=== PATIENT | female | born 1930 | race African-American/Black ===

== ENCOUNTER 2017-01-14 13:21 | Inpatient (IN) | payer OTHER, MEDICAID ==
[~2017-01-14] VITALS: Ht 162.6 cm; Wt 66.2 kg
[~2017-01-14 13:21] MED LIST: ASPI-1159 PO; COR12 PO; FURO-151 PO; LIPITOR PO; SEVE800T8 PO; SORBITOL PO
[2017-01-14] MEDS ORDERED: ASPIRIN 81MG TABLET PO ONE (14:45)
[2017-01-14] MEDS ORDERED: ALBUTEROL (0.083%) 2.5MG/3ML NEB HHN ONE (15:00)
[2017-01-14] MEDS ORDERED: METHYLPREDNISOLONE SOD SUCC 125 MG/2 ML VIAL IV ONE (15:00)
[2017-01-14] MEDS ORDERED: IPRATROPIUM BROMIDE (0.02%) 0.5MG/2.5ML NEB HHN ONE (15:00)
[2017-01-14 15:40] LABS: BASOPHILS % 1.2 % (0.0-2.0); EOSINOPHILS % 4.1 % (0.0-5.0); HEMATOCRIT. 31.8 % (36.0-48.0); HEMOGLOBIN. 10.5 g/dL (12.0-16.0); LYMPHOCYTES % 18.8 % (20.0-50.0); MEAN CORPUSCULAR HEMOGLOBIN 31.9 pg (28.0-32.0); MEAN CORPUSCULAR VOLUME 96.6 fL (81.0-99.0); MEAN PLATELET VOLUME 10.6 fl (7.4-10.4); MONOCYTES % 9.1 % (2.0-8.0); NEUTROPHILS % 66.8 % (40.0-76.0); PLATELET 165 x1000/uL (130-400); RED CELL DISTRIBUTION WIDTH 14.8 % (11.6-14.6)
[2017-01-14 15:46] LABS: PROTHROMBIN TIME 10.3 sec (9.4-11.6)
[2017-01-14 15:56] LABS: CARBON DIOXIDE 33 mEq/L (21-32); CHLORIDE 92 mEq/L (98-107); TROPONIN I 0.06 ng/mL (0.00-0.04)
[2017-01-14] MEDS ORDERED: NITROGLYCERIN 0.1MG/HR PATCH TOP SCH (18:15)
[2017-01-14] MEDS ORDERED: LORAZEPAM 2MG/ML CPJ IV PRN (18:30)
[2017-01-14] MEDS ORDERED: DIPHENHYDRAMINE 50MG/ML VIAL IV PRN (18:30)
[2017-01-14] MEDS ORDERED: ZOLPIDEM TARTRATE 5MG TABLET PO PRN (18:30)
[2017-01-14] MEDS ORDERED: DOCUSATE SODIUM 100MG CAPSULE PO PRN (18:30)
[2017-01-14] MEDS ORDERED: GUAIFENESIN 200MG/10ML SUGAR FREE UDC PO PRN (18:30)
[2017-01-14] MEDS ORDERED: CLONIDINE 0.1MG TABLET PO PRN (18:30)
[2017-01-14] MEDS ORDERED: MORPHINE SULFATE 4 MG/ML CPJ (NOT FOR IM USE) IV PRN (18:30)
[2017-01-14] MEDS ORDERED: MAGNESIUM/ALUMINUM HYDROXIDE/SIMETHICONE 30ML UDC PO PRN (18:30)
[2017-01-14] MEDS ORDERED: NA PHOS,M-B/NA PHOS,DI-BA ENEMA 118ML PR PRN (18:30)
[2017-01-14] MEDS ORDERED: IPRATROPIUM/ALBUTEROL 0.5-3(2.5)MG/3ML NEB INH PRN (18:30)
[2017-01-14] MEDS ORDERED: NITROGLYCERIN 0.4MG TABLET SL SL PRN (18:30)
[2017-01-14] MEDS ORDERED: ACETAMINOPHEN 325MG TABLET PO PRN (18:30)
[2017-01-14] MEDS ORDERED: ONDANSETRON HCL 4MG/2ML VIAL IV PRN (18:30)
[2017-01-14] MEDS ORDERED: GUAIFENESIN/DM 600MG/30MG ER TAB 12HR PO SCH (18:30)
[2017-01-14] MEDS ORDERED: TRAMADOL 50MG TABLET PO PRN (18:30)
[2017-01-14] MEDS ORDERED: BENAZEPRIL 20MG TABLET PO NR (21:00)
[2017-01-14] MEDS ORDERED: CARVEDILOL 25MG TABLET PO NR (21:00)
[2017-01-14 21:15] VITALS: BP 169/74
[2017-01-14] MEDS ORDERED: EPOETIN ALFA 4000UNITS/ML VIAL SUBCUT NR (22:00)
[2017-01-14] MEDS ORDERED: AMLO10TA80 PO (23:20)
[2017-01-14] MEDS ORDERED: CALC0.5C10 PO (23:20)
[2017-01-14] MEDS ORDERED: DOXA2TAB2 PO (23:20)
[2017-01-14] MEDS ORDERED: FERR-54 PO (23:20)
[2017-01-14] MEDS ORDERED: NEPVIT PO (23:20)
[2017-01-14] MEDS ORDERED: BENA40TA3 PO (23:20)
[2017-01-14] MEDS ORDERED: DOCU-150 PO (23:58)
[2017-01-15] VITALS: BP 167/98
[2017-01-15] MEDS ORDERED: FOLI1CAP6 PO (00:02)
[2017-01-15] MEDS ORDERED: DOCUSATE SODIUM 100MG CAPSULE PO NR (01:00)
[2017-01-15 01:09] LABS: CREATINE KINASE MB FRACTION 1.7 ng/mL (0.5-3.6); TROPONIN I 0.06 ng/mL (0.00-0.04)
[2017-01-15] MEDS ORDERED: FERROUS SULFATE 325MG TABLET PO NR (01:30)
[2017-01-15] MEDS ORDERED: CARVEDILOL 3.125 MG TABLET PO SCH (06:00)
[2017-01-15] MEDS ORDERED: SEVELAMER CARBONATE 800 MG TABLET PO SCH (07:50)
[2017-01-15] MEDS ORDERED: FAMOTIDINE 20MG/2ML VIAL IV SCH (09:00)
[2017-01-15] MEDS ORDERED: ENOXAPARIN 30MG/0.3ML SYR SUBCUT SCH (09:00)
[2017-01-15] MEDS ORDERED: FUROSEMIDE 40MG/4ML VIAL IVP SCH (09:00)
[2017-01-15] MEDS ORDERED: FOLIC ACID/VITAMIN B COMP W-C TABLET PO SCH (09:00)
[2017-01-15] MEDS ORDERED: ASPIRIN 325MG EC TABLET PO SCH (09:00)
== END 2017-01-15 02:55 | disposition left against medical advice (07) | DRG 291 ==
LOC: ER 13:21 → 6WST 18:18 → EDBEDREQ 19:02 → ENRESERV 19:41
PROVIDERS: ADMIT Internal Medicine; ATTEND Internal Medicine
PROC: 5A1D00Z (ICD-10-PCS; principal; 2017-01-14)
DX: I13.2 Hypertensive heart and chronic kidney disease with heart failure and with stage 5 chronic kidney disease, or end stage renal disease (principal); I50.33 Acute on chronic diastolic (congestive) heart failure; J96.00 Acute respiratory failure, unspecified whether with hypoxia or hypercapnia; N18.6 End stage renal disease; E88.09 Other disorders of plasma-protein metabolism, not elsewhere classified; D63.1 Anemia in chronic kidney disease; Z53.21 Procedure and treatment not carried out due to patient leaving prior to being seen by health care provider; Z99.2 Dependence on renal dialysis; Z79.82 Long term (current) use of aspirin; Z79.899 Other long term (current) drug therapy
CPT/HCPCS: 36415; 71010; 80053; 80061; 82550; 82553; 83036; 83605; 83690; 83735; 83880; 84484; 85025; 85610; 87040; 93005; 99285; J0885; J7030

== ENCOUNTER 2018-02-22 21:33 | Emergency (ER) | payer OTHER, MEDICAID ==
[~2018-02-22] VITALS: Ht 160 cm; Wt 63.0 kg
[~2018-02-22 21:33] MED LIST changes: +AMLO10TA80 PO; +BENA40TA9 PO; +CALC0.5C10 PO; +DOCU-150 PO; +DOXA2TAB2 PO; +FERR-54 PO; +FOLI1CAP6 PO; +NEPVIT PO
[2018-02-22] MEDS ORDERED: DIPHENHYDRAMINE 50MG/ML VIAL IV PRN (23:45)
[2018-02-22] MEDS ORDERED: MAGNESIUM/ALUMINUM HYDROXIDE/SIMETHICONE 30ML UDC PO PRN (23:45)
[2018-02-22] MEDS ORDERED: HYDROMORPHONE HCL/PF 2MG/ML CPJ IV PRN (23:45)
[2018-02-22] MEDS ORDERED: GUAIFENESIN 200MG/10ML SUGAR FREE UDC PO PRN (23:45)
[2018-02-22] MEDS ORDERED: IPRATROPIUM/ALBUTEROL 0.5-3(2.5)MG/3ML NEB INH PRN (23:45)
[2018-02-22] MEDS ORDERED: ONDANSETRON HCL 4MG/2ML INJ IV PRN (23:45)
[2018-02-22] MEDS ORDERED: NA PHOS,M-B/NA PHOS,DI-BA ENEMA 118ML PR PRN (23:45)
[2018-02-22] MEDS ORDERED: DOCUSATE SODIUM 100MG CAPSULE PO PRN (23:45)
[2018-02-22] MEDS ORDERED: ACETAMINOPHEN 325MG TABLET PO PRN (23:45)
[2018-02-22] MEDS ORDERED: CLONIDINE 0.1MG TABLET PO PRN (23:45)
[2018-02-22] MEDS ORDERED: LORAZEPAM 2MG/ML CPJ IV PRN (23:45)
[2018-02-22] MEDS ORDERED: ENOXAPARIN 40MG/0.4ML SYR SUBCUT SCH (23:45)
[2018-02-22] MEDS ORDERED: HYDROCODONE/ACETAMINOPHEN 5/325MG TABLET PO PRN (23:45)
[2018-02-23 00:25] LABS: BASOPHILS % 1.5 % (0.0-2.0); HEMATOCRIT. 30.1 % (36.0-48.0); HEMOGLOBIN. 10.1 g/dL (12.0-16.0); LYMPHOCYTES % 22.2 % (20.0-50.0); MEAN CORPUSCULAR HEMOGLOBIN 32.4 pg (28.0-32.0); MEAN CORPUSCULAR VOLUME 97.1 fL (81.0-99.0); MEAN PLATELET VOLUME 10.4 fl (7.4-10.4); MONOCYTES % 8.7 % (2.0-8.0); NEUTROPHILS % 63.6 % (40.0-76.0); PLATELET 188 x1000/uL (130-400); RED CELL DISTRIBUTION WIDTH 14.6 % (11.6-14.6)
[2018-02-23] MEDS ORDERED: CEFTRIAXONE 1 G PREMIX 50 ML IV ONE (00:30)
[2018-02-23] MEDS ORDERED: AZITHROMYCIN 500 MG in DEXT 5% WATER 250 ML IV ONE (00:30)
[2018-02-23 00:36] LABS: CHLORIDE 88 mEq/L (98-107)
[2018-02-23 01:50] VITALS: BP 155/74
[2018-02-23] MEDS ORDERED: ASPIRIN 81MG EC TABLET PO SCH (09:00)
== END 2018-02-23 01:55 | disposition left against medical advice (07) ==
LOC: ER 21:33 → EDBEDREQDT 02-23 00:11 → EDBEDREQ 02-23 00:11 → EDBEDREQTM 02-23 00:11 → ER 02-23 01:55 → CANBEDREQ 02-23 02:09
DX: R53.1 Weakness (principal); R00.1 Bradycardia, unspecified; I12.9 Hypertensive chronic kidney disease with stage 1 through stage 4 chronic kidney disease, or unspecified chronic kidney disease; N18.9 Chronic kidney disease, unspecified; Z99.2 Dependence on renal dialysis; Z79.899 Other long term (current) drug therapy; Z79.82 Long term (current) use of aspirin; Z98.890 Other specified postprocedural states
CPT/HCPCS: 36415; 71045; 80053; 83605; 83880; 84484; 85025; 93005; 99285; J0456; J7060

== ENCOUNTER 2018-03-06 19:55 | Inpatient (IN) | payer OTHER, MEDICAID ==
[~2018-03-06] VITALS: Ht 160 cm; Wt 65.8 kg
[2018-03-07 00:07] LABS: BASOPHILS % 1.3 % (0.0-2.0); EOSINOPHILS % 3.7 % (0.0-5.0); HEMOGLOBIN. 7.2 g/dL (12.0-16.0); MEAN CORPUSCULAR HEMOGLOBIN 33.4 pg (28.0-32.0); MEAN CORPUSCULAR VOLUME 96.9 fL (81.0-99.0); MEAN PLATELET VOLUME 10.6 fl (7.4-10.4); MONOCYTES % 8.1 % (2.0-8.0); NEUTROPHILS % 70.9 % (40.0-76.0); PLATELET 173 x1000/uL (130-400); RED BLOOD CELL COUNT 2.17 mill/uL (4.2-5.4); RED CELL DISTRIBUTION WIDTH 14.1 % (11.6-14.6)
[2018-03-07 00:12] LABS: CHLORIDE 92 mEq/L (98-107); PARTIAL THROMBOPLASTIN TIME 25.9 sec (23.4-31.0); PROTHROMBIN TIME 10.4 sec (9.1-11.1)
[2018-03-07] MEDS ORDERED: SODIUM CHLORIDE 0.45% 1,000 ML IV SCH (00:28)
[2018-03-07] MEDS ORDERED: ONDANSETRON HCL 4MG/2ML INJ IV PRN (00:30)
[2018-03-07] MEDS ORDERED: GUAIFENESIN 200MG/10ML SUGAR FREE UDC PO PRN (00:30)
[2018-03-07] MEDS ORDERED: LORAZEPAM 2MG/ML CPJ IV PRN (00:30)
[2018-03-07] MEDS ORDERED: IPRATROPIUM/ALBUTEROL 0.5-3(2.5)MG/3ML NEB INH PRN (00:30)
[2018-03-07] MEDS ORDERED: CLONIDINE 0.1MG TABLET PO PRN (00:30)
[2018-03-07] MEDS ORDERED: DOCUSATE SODIUM 100MG CAPSULE PO PRN (00:30)
[2018-03-07] MEDS ORDERED: DIPHENHYDRAMINE 50MG/ML VIAL IV PRN (00:30)
[2018-03-07] MEDS ORDERED: MAGNESIUM/ALUMINUM HYDROXIDE/SIMETHICONE 30ML UDC PO PRN (00:30)
[2018-03-07] MEDS ORDERED: PANTOPRAZOLE SODIUM 40 MG/VIAL IV ONE (00:30)
[2018-03-07] MEDS ORDERED: NA PHOS,M-B/NA PHOS,DI-BA ENEMA 118ML PR PRN (00:30)
[2018-03-07] MEDS ORDERED: HYDROMORPHONE HCL/PF 2MG/ML CPJ IV PRN (00:30)
[2018-03-07] MEDS: HYDROCODONE/ACETAMINOPHEN 5/325MG TABLET PO PRN ×2 (10:17→20:12)
[2018-03-07] MEDS ORDERED: PHENYLEPHRINE/SHK LV/MO/PET,WH RECTAL OINT 28GM PR PRN (15:45)
[2018-03-07 15:48] VITALS: BP 150/59
[2018-03-07 16:16] VITALS: BP 150/59
[2018-03-07] MEDS: BISACODYL 5MG TABLET PO SCH (17:41)
[2018-03-07 20:00] VITALS: BP 167/68
[2018-03-07] MEDS ORDERED: EPOETIN ALFA 4000UNITS/ML VIAL SUBCUT NR (21:00)
[2018-03-07] MEDS: PANTOPRAZOLE SODIUM 40 MG/VIAL IV SCH (21:09)
[2018-03-07 22:05] LABS: BASOPHILS % 1.4 % (0.0-2.0); EOSINOPHILS % 3.8 % (0.0-5.0); HEMATOCRIT. 22.4 % (36.0-48.0); HEMOGLOBIN. 7.7 g/dL (12.0-16.0); LYMPHOCYTES % 16.5 % (20.0-50.0); MEAN CORPUSCULAR HEMOGLOBIN 33.4 pg (28.0-32.0); MEAN CORPUSCULAR VOLUME 97.5 fL (81.0-99.0); MEAN PLATELET VOLUME 10.6 fl (7.4-10.4); MONOCYTES % 5.9 % (2.0-8.0); NEUTROPHILS % 72.4 % (40.0-76.0); PLATELET 206 x1000/uL (130-400); RED CELL DISTRIBUTION WIDTH 14.2 % (11.6-14.6)
[2018-03-07 22:14] LABS: TOTAL IRON BINDING CAPACITY 206 ug/dL (250-450)
[2018-03-07 22:51] LABS: FOLIC ACID (FOLATE) SERUM >20 ng/mL ng/mL (>5.38); VITAMIN B12 SERUM >2000 pg/mL pg/mL (211-911)
[2018-03-07 23:04] LABS: FERRITIN 902 ng/mL (10-291)
[2018-03-07] MEDS: DEXT 5%/0.45% NACL 1000ML 1,000 ML IV SCH (23:58)
[2018-03-08] VITALS: BP 160/59
[2018-03-08 04:00] VITALS: BP 165/80
[2018-03-08] MEDS ORDERED: CLONIDINE HCL 0.2MG/24HR PATCH TD SCH (05:00)
[2018-03-08] MEDS ORDERED: EPOETIN ALFA 4000UNITS/ML VIAL SUBCUT SCH (06:00)
[2018-03-08] MEDS ORDERED: HYDROMORPHONE HCL/PF 2MG/ML CPJ IV PRN (06:15)
[2018-03-08 07:36] LABS: PARTIAL THROMBOPLASTIN TIME 23.8 sec (23.4-31.0); PROTHROMBIN TIME 10.3 sec (9.1-11.1)
[2018-03-08 07:42] LABS: BASOPHILS % 1.2 % (0.0-2.0); CHLORIDE 95 mEq/L (98-107); EOSINOPHILS % 1.6 % (0.0-5.0); HEMATOCRIT. 22.1 % (36.0-48.0); HEMOGLOBIN. 7.4 g/dL (12.0-16.0); LYMPHOCYTES % 9.3 % (20.0-50.0); MEAN CORPUSCULAR HEMOGLOBIN 32.7 pg (28.0-32.0); MEAN CORPUSCULAR VOLUME 96.9 fL (81.0-99.0); MEAN PLATELET VOLUME 10.5 fl (7.4-10.4); MONOCYTES % 5.4 % (2.0-8.0); NEUTROPHILS % 82.5 % (40.0-76.0); PLATELET 213 x1000/uL (130-400); RED BLOOD CELL COUNT 2.28 mill/uL (4.2-5.4); RED CELL DISTRIBUTION WIDTH 13.8 % (11.6-14.6)
[2018-03-08 08:00] VITALS: BP 154/64
[2018-03-08 08:01] LABS: CREATINE KINASE 157 IU/L (26-192); HDL CHOLESTEROL 66 mg/dL (40-59); LDL CHOLESTEROL 86 mg/dL (5-100)
[2018-03-08] MEDS: PANTOPRAZOLE SODIUM 40 MG/VIAL IV SCH ×2 (11:00→20:42)
[2018-03-08] MEDS: BENAZEPRIL 10MG TABLET PO SCH ×2 (11:02→20:42)
[2018-03-08] MEDS: BISACODYL 5MG TABLET PO SCH (11:03)
[2018-03-08] MEDS ORDERED: POTASSIUM CHLORIDE 20MEQ TABLET SR PO SCH (11:15)
[2018-03-08] MEDS ORDERED: SIMETHICONE 40 MG/0.6 ML 30ML ONE (11:32)
[2018-03-08 14:00] VITALS: BP 146/58
[2018-03-08] MEDS ORDERED: FENTANYL CITRATE/PF 50MCG/ML 2ML VIAL ONE (14:26)
[2018-03-08] MEDS ORDERED: MIDAZOLAM HCL 5 MG/5 ML VIAL ONE (14:26)
[2018-03-08] MEDS ORDERED: FENTANYL CITRATE/PF 50MCG/ML 2ML VIAL IV PRN (14:34)
[2018-03-08] MEDS ORDERED: MIDAZOLAM HCL 5 MG/5 ML VIAL IV PRN (14:35)
[2018-03-08] MEDS: IRON SUCROSE COMPLEX 100 MG/5 ML ML IV SCH (17:04)
[2018-03-08] MEDS: ACETAMINOPHEN 325MG TABLET PO PRN (18:17)
[2018-03-08 20:00] VITALS: BP 141/60
[2018-03-08] MEDS: DEXT 5%/0.45% NACL 1000ML 1,000 ML IV SCH (20:43)
[2018-03-08 22:01] LABS: CREATINE KINASE MB FRACTION 1.2 ng/mL (0.5-3.6)
[2018-03-08] MEDS: LEVOFLOXACIN 250MG PREMIX 50 ML IV SCH (23:45)
[2018-03-09] VITALS (9 sets, daily range): BP systolic 115–169; BP diastolic 53–84
[2018-03-09] MEDS ORDERED: INFLUENZA VIRUS VACCINE(AFLURIA) 0.5ML SYR IM ONE (06:00)
[2018-03-09] MEDS: IRON SUCROSE COMPLEX 100 MG/5 ML ML IV SCH (09:35)
[2018-03-09] MEDS: BENAZEPRIL 10MG TABLET PO SCH ×2 (09:36→21:04)
[2018-03-09] MEDS: BISACODYL 5MG TABLET PO SCH (09:36)
[2018-03-09 09:37] LABS: RED BLOOD CELL COUNT 2.06 mill/uL (4.2-5.4)
[2018-03-09 09:40] LABS: HEMATOCRIT. 20.4 % (36.0-48.0); HEMOGLOBIN. 6.8 g/dL (12.0-16.0); MEAN CORPUSCULAR HEMOGLOBIN 33.2 pg (28.0-32.0); MEAN CORPUSCULAR VOLUME 99.3 fL (81.0-99.0); PLATELET 175 x1000/uL (130-400); RED CELL DISTRIBUTION WIDTH 14.4 % (11.6-14.6)
[2018-03-09 09:41] LABS: BASOPHILS % 0.9 % (0.0-2.0); EOSINOPHILS % 2.8 % (0.0-5.0); MEAN PLATELET VOLUME 10.8 fl (7.4-10.4); MONOCYTES % 8.8 % (2.0-8.0); NEUTROPHILS % 77.5 % (40.0-76.0)
[2018-03-09] MEDS ORDERED: EPOETIN ALFA 4000UNITS/ML VIAL SUBCUT NR (18:00)
[2018-03-09] MEDS ORDERED: LACTULOSE 20G/30ML UDC PO NR (19:00)
[2018-03-09] MEDS ORDERED: DOCUSATE SODIUM 250MG CAPSULE PO SCH (19:00)
[2018-03-09] MEDS: CARVEDILOL 12.5MG TABLET PO SCH (21:03)
[2018-03-09] MEDS: AMLODIPINE 5MG TABLET PO SCH (21:03)
[2018-03-09 23:03] LABS: HEMATOCRIT 25.2 % (36.0-48.0); HEMOGLOBIN 8.7 g/dL (12.0-16.0)
[2018-03-09 23:09] LABS: INR 1.1; PROTHROMBIN TIME 10.7 sec (9.1-11.1)
[2018-03-10] VITALS: BP 141/64
[2018-03-10 04:00] VITALS: BP 156/54
[2018-03-10 07:57] LABS: BASOPHILS % 1.2 % (0.0-2.0); EOSINOPHILS % 4.4 % (0.0-5.0); HEMATOCRIT. 25.5 % (36.0-48.0); HEMOGLOBIN. 8.7 g/dL (12.0-16.0); LYMPHOCYTES % 16.6 % (20.0-50.0); MEAN CORPUSCULAR HEMOGLOBIN 32.4 pg (28.0-32.0); MEAN CORPUSCULAR VOLUME 95.4 fL (81.0-99.0); MEAN PLATELET VOLUME 10.4 fl (7.4-10.4); NEUTROPHILS % 67.8 % (40.0-76.0); PLATELET 178 x1000/uL (130-400); RED BLOOD CELL COUNT 2.68 mill/uL (4.2-5.4); RED CELL DISTRIBUTION WIDTH 15.8 % (11.6-14.6)
[2018-03-10 08:00] VITALS: BP 161/61
[2018-03-10] MEDS: IRON SUCROSE COMPLEX 100 MG/5 ML ML IV SCH (09:02)
[2018-03-10] MEDS: CARVEDILOL 12.5MG TABLET PO SCH ×2 (09:02→20:28)
[2018-03-10] MEDS: LACTULOSE 20G/30ML UDC PO SCH ×2 (09:02→17:00)
[2018-03-10] MEDS: AMLODIPINE 5MG TABLET PO SCH ×2 (09:02→20:28)
[2018-03-10] MEDS: BENAZEPRIL 10MG TABLET PO SCH ×2 (09:03→20:28)
[2018-03-10] MEDS: BISACODYL 5MG TABLET PO SCH (09:03)
[2018-03-10 11:33] VITALS: BP 143/50
[2018-03-10 15:42] VITALS: BP 144/58
[2018-03-10 20:20] VITALS: BP 103/49
[2018-03-10] MEDS: LEVOFLOXACIN 250MG PREMIX 50 ML IV SCH (20:27)
[2018-03-10] MEDS: ACETAMINOPHEN 325MG TABLET PO PRN (20:29)
[2018-03-11 00:19] VITALS: BP 147/58
[2018-03-11 04:00] VITALS: BP 135/55
[2018-03-11] MEDS ORDERED: EPOETIN ALFA 4000UNITS/ML VIAL SUBCUT NR (06:00)
[2018-03-11 08:00] VITALS: BP 160/58
[2018-03-11] MEDS: ACETAMINOPHEN 325MG TABLET PO PRN ×2 (08:27→17:09)
[2018-03-11] MEDS: CARVEDILOL 12.5MG TABLET PO SCH (08:27)
[2018-03-11] MEDS: BENAZEPRIL 10MG TABLET PO SCH (08:27)
[2018-03-11] MEDS: IRON SUCROSE COMPLEX 100 MG/5 ML ML IV SCH (08:28)
[2018-03-11] MEDS: LACTULOSE 20G/30ML UDC PO SCH (08:28)
[2018-03-11] MEDS: AMLODIPINE 5MG TABLET PO SCH (08:28)
[2018-03-11 10:31] VITALS: BP 160/58
[2018-03-11 13:16] VITALS: BP 153/56
[2018-03-11] MEDS: HYDROCODONE/ACETAMINOPHEN 5/325MG TABLET PO PRN (13:16)
[2018-03-12] MEDS ORDERED: LEVOFLOXACIN 250MG TABLET PO SCH (21:00)
[2018-03-15] MEDS ORDERED: CLONIDINE HCL 0.2MG/24HR PATCH TD SCH (09:00)
== END 2018-03-11 17:10 | disposition home or self-care (01) | DRG 377 ==
LOC: ER 19:55 → 6WST 03-07 00:23 → EDBEDREQ 03-07 01:03 → EDBEDREQDT 03-07 01:03 → EDBEDREQTM 03-07 01:03 → ENRESERV 03-07 14:38
PROVIDERS: ADMIT Internal Medicine; ATTEND Internal Medicine
PROC: 5A1D70Z Performance of Urinary Filtration, Intermittent, Less than 6 Hours Per Day (ICD-10-PCS; principal; 2018-03-07)
PROC: 0DB78ZX Excision of Stomach, Pylorus, Via Natural or Artificial Opening Endoscopic, Diagnostic (ICD-10-PCS; 2018-03-08)
PROC: 30233N1 Transfusion of Nonautologous Red Blood Cells into Peripheral Vein, Percutaneous Approach (ICD-10-PCS; 2018-03-09)
PROC: 5A1D70Z Performance of Urinary Filtration, Intermittent, Less than 6 Hours Per Day (ICD-10-PCS; 2018-03-09)
DX: K92.2 Gastrointestinal hemorrhage, unspecified (principal); I50.33 Acute on chronic diastolic (congestive) heart failure; N18.6 End stage renal disease; I13.2 Hypertensive heart and chronic kidney disease with heart failure and with stage 5 chronic kidney disease, or end stage renal disease; E46 Unspecified protein-calorie malnutrition; I25.10 Atherosclerotic heart disease of native coronary artery without angina pectoris; M25.412 Effusion, left shoulder; K59.00 Constipation, unspecified; E86.0 Dehydration; Z99.2 Dependence on renal dialysis; Z79.899 Other long term (current) drug therapy; Z79.82 Long term (current) use of aspirin; Z68.25 Body mass index [BMI] 25.0-25.9, adult; D63.8 Anemia in other chronic diseases classified elsewhere; M25.511 Pain in right shoulder
CPT/HCPCS: 36415; 71045; 73030; 73221; 74176; 80048; 80061; 82550; 82553; 82607; 82728; 82746; 83540; 83550; 83605; 83735; 84484; 85014; 85018; 85049; 85384; 86706; 86850; 86900; 86920; 87070; 88305; 88313; 90686; 93005; 93306; 93970; 96374; 99285; A6261; C1893; C9113; J0885; J1170; J1956; J2250; J2405; J3010; J3490; P9016

== ENCOUNTER 2018-03-19 16:18 | Inpatient (IN) | payer MEDICARE, MEDICAID ==
[~2018-03-19] VITALS: Ht 162.6 cm; Wt 66.7 kg
[2018-03-19 18:24] LABS: BASOPHILS % 0.6 % (0.0-2.0); EOSINOPHILS % 1.7 % (0.0-5.0); HEMATOCRIT. 28.7 % (36.0-48.0); HEMOGLOBIN. 9.7 g/dL (12.0-16.0); LYMPHOCYTES % 9.2 % (20.0-50.0); MEAN CORPUSCULAR HEMOGLOBIN 32.4 pg (28.0-32.0); MEAN CORPUSCULAR VOLUME 95.7 fL (81.0-99.0); MEAN PLATELET VOLUME 10.3 fl (7.4-10.4); MONOCYTES % 10.2 % (2.0-8.0); NEUTROPHILS % 78.3 % (40.0-76.0); PLATELET 231 x1000/uL (130-400); RED CELL DISTRIBUTION WIDTH 15.4 % (11.6-14.6)
[2018-03-19 18:29] LABS: CHLORIDE 92 mEq/L (98-107)
[2018-03-19 18:31] LABS: PARTIAL THROMBOPLASTIN TIME 25.1 sec (23.4-31.0)
[2018-03-19 18:36] LABS: LDL CHOLESTEROL 72 mg/dL (5-100)
[2018-03-19] MEDS ORDERED: ASPIRIN 81MG TABLET PO ONE (21:00)
[2018-03-19] MEDS ORDERED: DIPHENHYDRAMINE 50MG/ML VIAL IV PRN (23:45)
[2018-03-19] MEDS ORDERED: GUAIFENESIN 200MG/10ML SUGAR FREE UDC PO PRN (23:45)
[2018-03-19] MEDS ORDERED: IPRATROPIUM/ALBUTEROL 0.5-3(2.5)MG/3ML NEB INH PRN (23:45)
[2018-03-19] MEDS ORDERED: ONDANSETRON HCL 4MG/2ML INJ IV PRN (23:45)
[2018-03-19] MEDS ORDERED: LORAZEPAM 2MG/ML CPJ IV PRN (23:45)
[2018-03-19] MEDS ORDERED: ACETAMINOPHEN 325MG TABLET PO PRN (23:45)
[2018-03-19] MEDS ORDERED: DOCUSATE SODIUM 100MG CAPSULE PO PRN (23:45)
[2018-03-19] MEDS ORDERED: ENOXAPARIN 40MG/0.4ML SYR SUBCUT SCH (23:45)
[2018-03-19] MEDS ORDERED: MAGNESIUM/ALUMINUM HYDROXIDE/SIMETHICONE 30ML UDC PO PRN (23:45)
[2018-03-19] MEDS ORDERED: HYDROCODONE/ACETAMINOPHEN 5/325MG TABLET PO PRN (23:45)
[2018-03-20 01:05] VITALS: BP 159/60
[2018-03-20] MEDS ORDERED: NA PHOS,M-B/NA PHOS,DI-BA ENEMA 118ML PR PRN (01:30)
[2018-03-20] MEDS ORDERED: HYDROMORPHONE HCL/PF 2MG/ML CPJ IV PRN (01:31)
[2018-03-20] MEDS ORDERED: LACTULOSE 20G/30ML UDC PO PRN (02:30)
[2018-03-20 04:00] VITALS: BP 167/63
[2018-03-20] MEDS: CLONIDINE 0.1MG TABLET PO PRN (05:15)
[2018-03-20 08:00] VITALS: BP_SYST 142; BP_SYST 156; BP_DIAS 62; BP_DIAS 66
[2018-03-20 08:00] LABS: BASOPHILS % 1.1 % (0.0-2.0); HEMATOCRIT. 25.5 % (36.0-48.0); HEMOGLOBIN. 8.7 g/dL (12.0-16.0); MEAN CORPUSCULAR HEMOGLOBIN 32.7 pg (28.0-32.0); MEAN CORPUSCULAR VOLUME 95.6 fL (81.0-99.0); MEAN PLATELET VOLUME 10.1 fl (7.4-10.4); MONOCYTES % 11.2 % (2.0-8.0); NEUTROPHILS % 69.7 % (40.0-76.0); PLATELET 204 x1000/uL (130-400); RED BLOOD CELL COUNT 2.67 mill/uL (4.2-5.4); RED CELL DISTRIBUTION WIDTH 15.4 % (11.6-14.6)
[2018-03-20] MEDS ORDERED: ASPIRIN 81MG EC TABLET PO SCH (09:00)
[2018-03-20] MEDS: ENOXAPARIN 30MG/0.3ML SYR SUBCUT SCH (11:03)
[2018-03-20] MEDS: FOLIC ACID/VITAMIN B COMP W-C TABLET PO SCH (11:04)
[2018-03-20] MEDS: ASPIRIN 81MG TABLET PO SCH (11:04)
[2018-03-20] MEDS: CARVEDILOL 12.5MG TABLET PO SCH ×2 (11:05→20:24)
[2018-03-20] MEDS: DOCUSATE SODIUM 250MG CAPSULE PO SCH ×3 (11:05→19:00)
[2018-03-20] MEDS: BENAZEPRIL 10MG TABLET PO SCH ×2 (11:06→20:22)
[2018-03-20] MEDS: ACETAMINOPHEN WITH CODEINE 300/30MG TABLET PO PRN ×4 (11:13→20:23)
[2018-03-20 12:00] VITALS: BP 138/56
[2018-03-20 15:48] LABS: CHLORIDE 94 mEq/L (98-107)
[2018-03-20 16:00] VITALS: BP 154/64
[2018-03-20 16:01] LABS: HDL CHOLESTEROL 53 mg/dL (40-59); LDL CHOLESTEROL 54 mg/dL (5-100)
[2018-03-20 16:02] LABS: T4 FREE 1.31 ng/dL (0.76-1.46)
[2018-03-20] MEDS: NYSTATIN POWDER 15GM TOP SCH ×2 (16:58→17:00)
[2018-03-20 18:22] LABS: CREATINE KINASE MB FRACTION 1.6 ng/mL (0.5-3.6)
[2018-03-20 20:42] VITALS: BP 145/64
[2018-03-20 23:43] LABS: CREATINE KINASE MB FRACTION 1.3 ng/mL (0.5-3.6)
[2018-03-21 00:48] VITALS: BP 153/57
[2018-03-21 04:00] VITALS: BP 179/79
[2018-03-21] MEDS: CLONIDINE 0.1MG TABLET PO PRN (05:46)
[2018-03-21 08:14] VITALS: BP 158/61
[2018-03-21] MEDS: BENAZEPRIL 10MG TABLET PO SCH ×2 (09:00→20:35)
[2018-03-21] MEDS: CARVEDILOL 12.5MG TABLET PO SCH ×2 (09:00→20:35)
[2018-03-21] MEDS: FOLIC ACID/VITAMIN B COMP W-C TABLET PO SCH (09:37)
[2018-03-21] MEDS: ASPIRIN 81MG TABLET PO SCH (09:38)
[2018-03-21] MEDS: DOCUSATE SODIUM 250MG CAPSULE PO SCH ×3 (09:38→17:00)
[2018-03-21] MEDS: ACETAMINOPHEN WITH CODEINE 300/30MG TABLET PO PRN ×2 (09:39→17:22)
[2018-03-21] MEDS: ENOXAPARIN 30MG/0.3ML SYR SUBCUT SCH (09:40)
[2018-03-21] MEDS: NYSTATIN POWDER 15GM TOP SCH ×3 (09:51→17:29)
[2018-03-21 11:46] LABS: CREATINE KINASE MB FRACTION 1.2 ng/mL (0.5-3.6)
[2018-03-21 11:59] VITALS: BP 156/54
[2018-03-21 16:32] VITALS: BP 151/50
[2018-03-21 20:34] VITALS: BP 149/56
[2018-03-22 00:48] VITALS: BP 138/59
[2018-03-22 04:00] VITALS: BP 141/61
[2018-03-22 08:00] VITALS: BP 179/81
[2018-03-22] MEDS: ASPIRIN 81MG TABLET PO SCH (09:00)
[2018-03-22] MEDS: DOCUSATE SODIUM 250MG CAPSULE PO SCH ×3 (09:00→16:54)
[2018-03-22] MEDS: BENAZEPRIL 10MG TABLET PO SCH ×2 (09:00→20:56)
[2018-03-22] MEDS: FOLIC ACID/VITAMIN B COMP W-C TABLET PO SCH (09:00)
[2018-03-22] MEDS: ENOXAPARIN 30MG/0.3ML SYR SUBCUT SCH (09:01)
[2018-03-22] MEDS: NYSTATIN POWDER 15GM TOP SCH ×3 (09:01→16:54)
[2018-03-22] MEDS: CARVEDILOL 12.5MG TABLET PO SCH ×2 (09:01→20:55)
[2018-03-22 12:00] VITALS: BP 140/49
[2018-03-22 16:00] VITALS: BP 102/69
[2018-03-22 20:00] VITALS: BP 165/66
[2018-03-23] VITALS (9 sets, daily range): BP systolic 125–186; BP diastolic 55–68
[2018-03-23 06:38] LABS: BASOPHILS % 0.7 % (0.0-2.0); EOSINOPHILS % 2.9 % (0.0-5.0); HEMOGLOBIN. 9.3 g/dL (12.0-16.0); LYMPHOCYTES % 15.4 % (20.0-50.0); MEAN CORPUSCULAR HEMOGLOBIN 31.8 pg (28.0-32.0); MEAN CORPUSCULAR VOLUME 95.8 fL (81.0-99.0); MEAN PLATELET VOLUME 10.5 fl (7.4-10.4); MONOCYTES % 8.7 % (2.0-8.0); NEUTROPHILS % 72.3 % (40.0-76.0); PLATELET 209 x1000/uL (130-400); RED BLOOD CELL COUNT 2.92 mill/uL (4.2-5.4); RED CELL DISTRIBUTION WIDTH 15.2 % (11.6-14.6)
[2018-03-23] MEDS: ASPIRIN 81MG TABLET PO SCH (08:33)
[2018-03-23] MEDS: DOCUSATE SODIUM 250MG CAPSULE PO SCH ×4 (08:35→18:39)
[2018-03-23] MEDS: BENAZEPRIL 10MG TABLET PO SCH ×2 (08:37→20:28)
[2018-03-23] MEDS: CARVEDILOL 12.5MG TABLET PO SCH ×2 (08:37→20:28)
[2018-03-23] MEDS: FOLIC ACID/VITAMIN B COMP W-C TABLET PO SCH (08:38)
[2018-03-23] MEDS: NYSTATIN POWDER 15GM TOP SCH ×3 (08:40→17:00)
[2018-03-23] MEDS: ENOXAPARIN 30MG/0.3ML SYR SUBCUT SCH (09:00)
[2018-03-23] MEDS: CLONIDINE 0.1MG TABLET PO PRN (10:51)
[2018-03-23] MEDS: ACETAMINOPHEN WITH CODEINE 300/30MG TABLET PO PRN (20:29)
[2018-03-24] VITALS (9 sets, daily range): BP systolic 113–196; BP diastolic 52–77
[2018-03-24] MEDS: CLONIDINE 0.1MG TABLET PO PRN ×2 (01:00→09:36)
[2018-03-24] MEDS ORDERED: BENAZEPRIL 10MG TABLET PO NR (01:30)
[2018-03-24] MEDS ORDERED: CARVEDILOL 12.5MG TABLET PO NR (02:00)
[2018-03-24] MEDS: ACETAMINOPHEN WITH CODEINE 300/30MG TABLET PO PRN ×2 (05:48→21:56)
[2018-03-24] MEDS: FOLIC ACID/VITAMIN B COMP W-C TABLET PO SCH (09:36)
[2018-03-24] MEDS: DOCUSATE SODIUM 250MG CAPSULE PO SCH ×3 (09:36→17:00)
[2018-03-24] MEDS: ASPIRIN 81MG TABLET PO SCH (12:00)
[2018-03-24] MEDS: CARVEDILOL 25MG TABLET PO SCH ×2 (12:03→20:59)
[2018-03-24] MEDS: NYSTATIN POWDER 15GM TOP SCH ×3 (12:05→17:00)
[2018-03-24] MEDS: BENAZEPRIL 10MG TABLET PO SCH (20:59)
[2018-03-24] MEDS ORDERED: AMLODIPINE 5MG TABLET PO SCH (21:00)
[2018-03-25] VITALS (9 sets, daily range): BP systolic 100–175; BP diastolic 50–76
[2018-03-25] MEDS ORDERED: AMLODIPINE 5MG TABLET PO NR (01:30)
[2018-03-25] MEDS: LORAZEPAM 0.5MG TABLET PO PRN (01:43)
[2018-03-25] MEDS: DOCUSATE SODIUM 250MG CAPSULE PO SCH ×3 (09:00→16:38)
[2018-03-25] MEDS: BENAZEPRIL 10MG TABLET PO SCH ×2 (09:19→21:19)
[2018-03-25] MEDS: AMLODIPINE 10MG TABLET PO SCH ×2 (09:20→21:18)
[2018-03-25] MEDS: DOXAZOSIN MESYLATE 2MG TABLET PO SCH ×2 (09:20→17:27)
[2018-03-25] MEDS: FOLIC ACID/VITAMIN B COMP W-C TABLET PO SCH (09:20)
[2018-03-25] MEDS: NYSTATIN POWDER 15GM TOP SCH ×3 (09:20→17:25)
[2018-03-25] MEDS: ASPIRIN 81MG TABLET PO SCH (09:20)
[2018-03-25] MEDS: CARVEDILOL 25MG TABLET PO SCH ×2 (09:21→21:19)
[2018-03-25] MEDS ORDERED: ACETAMINOPHEN WITH CODEINE 300/30MG TABLET PO PRN (21:30)
[2018-03-26] VITALS (7 sets, daily range): BP systolic 151–167; BP diastolic 52–68
[2018-03-26] MEDS: LORAZEPAM 0.5MG TABLET PO PRN (00:46)
[2018-03-26] MEDS: CARVEDILOL 25MG TABLET PO SCH (09:00)
[2018-03-26] MEDS: FOLIC ACID/VITAMIN B COMP W-C TABLET PO SCH (09:00)
[2018-03-26] MEDS: AMLODIPINE 10MG TABLET PO SCH (09:00)
[2018-03-26] MEDS: DOCUSATE SODIUM 250MG CAPSULE PO SCH ×3 (09:00→17:00)
[2018-03-26] MEDS: DOXAZOSIN MESYLATE 2MG TABLET PO SCH ×2 (09:00→17:00)
[2018-03-26] MEDS: BENAZEPRIL 10MG TABLET PO SCH (09:00)
[2018-03-26] MEDS: NYSTATIN POWDER 15GM TOP SCH ×3 (09:00→17:00)
[2018-03-26] MEDS: ASPIRIN 81MG TABLET PO SCH (09:00)
[2018-03-26] MEDS ORDERED: EPOETIN ALFA 4000UNITS/ML VIAL SUBCUT SCH (21:00)
== END 2018-03-26 20:50 | DRG 69 ==
LOC: ER 16:18 → 6WST 20:50 → EDBEDREQTM 20:57 → EDBEDREQ 20:57 → ENRESERV 23:43 → 6WST 03-23 20:55
PROVIDERS: ADMIT Internal Medicine; ATTEND Internal Medicine
PROC: 5A1D70Z Performance of Urinary Filtration, Intermittent, Less than 6 Hours Per Day (ICD-10-PCS; principal; 2018-03-20)
PROC: 5A1D70Z Performance of Urinary Filtration, Intermittent, Less than 6 Hours Per Day (ICD-10-PCS; 2018-03-21)
PROC: 5A1D70Z Performance of Urinary Filtration, Intermittent, Less than 6 Hours Per Day (ICD-10-PCS; 2018-03-23)
DX: G45.9 Transient cerebral ischemic attack, unspecified (principal); G93.41 Metabolic encephalopathy; N18.6 End stage renal disease; E46 Unspecified protein-calorie malnutrition; I13.2 Hypertensive heart and chronic kidney disease with heart failure and with stage 5 chronic kidney disease, or end stage renal disease; I69.354 Hemiplegia and hemiparesis following cerebral infarction affecting left non-dominant side; K92.2 Gastrointestinal hemorrhage, unspecified; D64.9 Anemia, unspecified; E11.22 Type 2 diabetes mellitus with diabetic chronic kidney disease; E78.5 Hyperlipidemia, unspecified; I25.10 Atherosclerotic heart disease of native coronary artery without angina pectoris; I50.9 Heart failure, unspecified; Z99.2 Dependence on renal dialysis; Z68.25 Body mass index [BMI] 25.0-25.9, adult; Z79.82 Long term (current) use of aspirin; Z79.899 Other long term (current) drug therapy
CPT/HCPCS: 36415; 70551; 71045; 80048; 80061; 82270; 82550; 82553; 82962; 83036; 83721; 83735; 83880; 84100; 84134; 84439; 84443; 84484; 85379; 93005; 93306; 93880; 93970; 97162; 97167; 97530; 99285; A6261; C1893; J0885; J1650

== ENCOUNTER 2018-04-16 23:47 | Emergency (ER) | payer MEDICARE, MEDICAID ==
[~2018-04-16] VITALS: Ht 157.5 cm; Wt 60.0 kg
[2018-04-17] MEDS ORDERED: MORPHINE SULFATE 10 MG/ML CPJ IV STA (00:24)
[2018-04-17] MEDS: MORPHINE SULFATE 10 MG/ML CPJ IV SCH ×2 (00:30→03:45)
[2018-04-17] MEDS: MORPHINE SULFATE 4 MG/ML CPJ (NOT FOR IM USE) IV STA (00:35)
[2018-04-17 01:00] LABS: BASOPHILS % 0.6 % (0.0-2.0); EOSINOPHILS % 0.8 % (0.0-5.0); HEMATOCRIT. 28.4 % (36.0-48.0); HEMOGLOBIN. 9.3 g/dL (12.0-16.0); LYMPHOCYTES % 8.4 % (20.0-50.0); MEAN CORPUSCULAR HEMOGLOBIN 31.2 pg (28.0-32.0); MEAN CORPUSCULAR VOLUME 94.8 fL (81.0-99.0); MONOCYTES % 7.3 % (2.0-8.0); NEUTROPHILS % 82.9 % (40.0-76.0); PLATELET 246 x1000/uL (130-400); RED BLOOD CELL COUNT 2.99 mill/uL (4.2-5.4); RED CELL DISTRIBUTION WIDTH 15.6 % (11.6-14.6)
[2018-04-17 01:07] LABS: CHLORIDE 93 mEq/L (98-107)
[2018-04-17] MEDS: MORPHINE SULFATE 2 MG/ML CPJ (NOT FOR IM USE) IV ONE (03:45)
[2018-04-17] MEDS: POTASSIUM CHLORIDE 10MEQ TABLET SR PO ONE (03:45)
[2018-04-17] MEDS: MORPHINE SULFATE 2 MG/ML CPJ (NOT FOR IM USE) IV PRN (06:58)
[2018-04-17 07:01] VITALS: BP 148/77
== END 2018-04-17 07:05 | disposition home or self-care (01) ==
LOC: ER 23:47 → CANBEDREQ 04-17 07:14
DX: R10.30 Lower abdominal pain, unspecified (principal); K56.41 Fecal impaction; E87.6 Hypokalemia; I77.0 Arteriovenous fistula, acquired; I10 Essential (primary) hypertension; N28.9 Disorder of kidney and ureter, unspecified; Z95.5 Presence of coronary angioplasty implant and graft; Z79.899 Other long term (current) drug therapy
CPT/HCPCS: 36415; 74176; 80053; 83605; 85025; 93005; 96374; 99284; J2270

== ENCOUNTER 2018-07-03 10:59 | Inpatient (IN) | payer MEDICARE, MEDICAID ==
[~2018-07-03] VITALS: Ht 160 cm; Wt 59.6 kg
[2018-07-03 12:38] LABS: BASOPHILS % 1.1 % (0.0-2.0); EOSINOPHILS % 1.9 % (0.0-5.0); HEMATOCRIT. 29.8 % (36.0-48.0); HEMOGLOBIN. 9.9 g/dL (12.0-16.0); LYMPHOCYTES % 16.5 % (20.0-50.0); MEAN CORPUSCULAR HEMOGLOBIN 32.1 pg (28.0-32.0); MEAN CORPUSCULAR VOLUME 96.5 fL (81.0-99.0); MEAN PLATELET VOLUME 10.3 fl (7.4-10.4); NEUTROPHILS % 74.5 % (40.0-76.0); PLATELET 211 x1000/uL (130-400); RED BLOOD CELL COUNT 3.09 mill/uL (4.2-5.4); RED CELL DISTRIBUTION WIDTH 15.8 % (11.6-14.6)
[2018-07-03 12:39] LABS: CHLORIDE 86 mEq/L (98-107)
[2018-07-03 12:42] LABS: PARTIAL THROMBOPLASTIN TIME 26.6 sec (23.4-31.0); PROTHROMBIN TIME 10.3 sec (9.1-11.1)
[2018-07-03 15:50] VITALS: BP 161/71
[2018-07-03 16:16] VITALS: BP 167/71
[2018-07-03] MEDS ORDERED: ACETAMINOPHEN 325MG TABLET PO PRN (17:30)
[2018-07-03] MEDS ORDERED: LORAZEPAM 2MG/ML CPJ IV PRN (17:30)
[2018-07-03] MEDS ORDERED: DOCUSATE SODIUM 100MG CAPSULE PO PRN (17:30)
[2018-07-03] MEDS ORDERED: MAGNESIUM/ALUMINUM HYDROXIDE/SIMETHICONE 30ML UDC PO PRN (17:30)
[2018-07-03] MEDS ORDERED: DIPHENHYDRAMINE 50MG/ML VIAL IV PRN (17:30)
[2018-07-03] MEDS ORDERED: ONDANSETRON HCL 4MG/2ML INJ IV PRN (17:30)
[2018-07-03] MEDS ORDERED: HYDRALAZINE 20MG/ML VIAL IV PRN (17:30)
[2018-07-03] MEDS ORDERED: CLONIDINE 0.1MG TABLET PO PRN (17:30)
[2018-07-03] MEDS ORDERED: HYDROMORPHONE HCL/PF 2MG/ML CPJ IV PRN (17:30)
[2018-07-03] MEDS ORDERED: HYDROCODONE/ACETAMINOPHEN 10/325MG TABLET PO PRN (17:30)
[2018-07-03] MEDS ORDERED: GUAIFENESIN 200MG/10ML SUGAR FREE UDC PO PRN (17:30)
[2018-07-03] MEDS ORDERED: IPRATROPIUM/ALBUTEROL 0.5-3(2.5)MG/3ML NEB INH PRN (17:30)
[2018-07-03] MEDS ORDERED: ENOXAPARIN 30MG/0.3ML SYR SUBCUT SCH (18:00)
[2018-07-03 20:00] VITALS: BP 173/77
[2018-07-03] MEDS: CALCITRIOL 0.25MCG CAPSULE PO SCH (20:30)
[2018-07-03] MEDS: CARVEDILOL 25MG TABLET PO SCH (21:00)
[2018-07-03] MEDS: BENAZEPRIL 10MG TABLET PO SCH (21:00)
[2018-07-03] MEDS ORDERED: ATORVASTATIN CALCIUM 10MG TABLET PO SCH (21:00)
[2018-07-03] MEDS ORDERED: LIPITOR 10 MG PO SCH (21:00)
[2018-07-03] MEDS ORDERED: SODIUM CHLORIDE 0.9% INJ 3ML FLUSH IVF SCH (22:00)
[2018-07-04 00:03] VITALS: BP 159/75
[2018-07-04 00:16] LABS: CREATINE KINASE MB FRACTION 1.9 ng/mL (0.5-3.6)
[2018-07-04 04:00] VITALS: BP 167/68
[2018-07-04] MEDS ORDERED: EPOETIN ALFA 4000UNITS/ML VIAL SUBCUT NR (05:00)
[2018-07-04 06:35] LABS: BASOPHILS % 1.1 % (0.0-2.0); EOSINOPHILS % 3.1 % (0.0-5.0); HEMATOCRIT. 26.9 % (36.0-48.0); HEMOGLOBIN. 8.9 g/dL (12.0-16.0); LYMPHOCYTES % 17.9 % (20.0-50.0); MEAN CORPUSCULAR HEMOGLOBIN 32.3 pg (28.0-32.0); MEAN CORPUSCULAR VOLUME 97.4 fL (81.0-99.0); MEAN PLATELET VOLUME 10.6 fl (7.4-10.4); MONOCYTES % 11.6 % (2.0-8.0); NEUTROPHILS % 66.3 % (40.0-76.0); PLATELET 192 x1000/uL (130-400); RED BLOOD CELL COUNT 2.76 mill/uL (4.2-5.4); RED CELL DISTRIBUTION WIDTH 15.6 % (11.6-14.6)
[2018-07-04 07:30] LABS: CHLORIDE 98 mEq/L (98-107)
[2018-07-04 07:41] LABS: CREATINE KINASE MB FRACTION 1.3 ng/mL (0.5-3.6)
[2018-07-04 07:53] LABS: T4 FREE 1.18 ng/dL (0.76-1.46)
[2018-07-04 07:54] LABS: CREATINE KINASE 47 IU/L (26-192)
[2018-07-04 07:55] LABS: LDL CHOLESTEROL 106 mg/dL (5-100)
[2018-07-04 07:57] LABS: HDL CHOLESTEROL 65 mg/dL (40-59)
[2018-07-04] MEDS: BENAZEPRIL 10MG TABLET PO SCH (08:24)
[2018-07-04] MEDS: FUROSEMIDE 40MG TABLET PO SCH ×2 (08:25→16:23)
[2018-07-04] MEDS: FERROUS SULFATE 325MG TABLET PO SCH ×2 (08:25→16:21)
[2018-07-04] MEDS: CALCITRIOL 0.25MCG CAPSULE PO SCH (08:25)
[2018-07-04] MEDS: DOXAZOSIN MESYLATE 2MG TABLET PO SCH ×2 (08:25→16:23)
[2018-07-04] MEDS: CARVEDILOL 25MG TABLET PO SCH (08:25)
[2018-07-04] MEDS: SEVELAMER CARBONATE 800 MG TABLET PO SCH ×3 (08:26→18:44)
[2018-07-04] MEDS: DOCUSATE SODIUM 100MG CAPSULE PO SCH ×3 (08:27→18:44)
[2018-07-04] MEDS ORDERED: MEDICATION NOT ON FORMULARY EA (Furosemide (Lasix) 40 MG) PO SCH (09:00)
[2018-07-04] MEDS ORDERED: SORBITOL PO SCH (09:00)
[2018-07-04] MEDS ORDERED: MEDICATION NOT ON FORMULARY EA (Sevelamer Carbonate (Renvela) 800 MG) PO SCH (09:00)
[2018-07-04] MEDS ORDERED: FOLIC ACID/VITAMIN B COMP W-C TABLET PO SCH (09:00)
[2018-07-04] MEDS ORDERED: SORBITOL 70% SOLN 30ML PO SCH (09:00)
[2018-07-04] MEDS ORDERED: AMLODIPINE 10MG TABLET PO SCH ×2 (09:00)
[2018-07-04] MEDS ORDERED: ASPIRIN 81MG EC TABLET PO SCH (09:00)
[2018-07-04] MEDS ORDERED: MEDICATION NOT ON FORMULARY EA (Benazepril Hcl 40 MG) PO SCH (09:00)
[2018-07-04] MEDS ORDERED: CALCITRIOL 0.5 MCG PO SCH (09:00)
[2018-07-04 11:39] VITALS: BP 143/58
[2018-07-04 16:25] VITALS: BP 157/67
[2018-07-06] MEDS ORDERED: EPOETIN ALFA 4000UNITS/ML VIAL SUBCUT SCH (21:00)
== END 2018-07-04 20:45 | disposition left against medical advice (07) | DRG 189 ==
LOC: ER 10:59 → 6WST 14:21 → ENRESERV 15:09
PROVIDERS: ADMIT Internal Medicine; ATTEND Internal Medicine
PROC: 5A1D70Z Performance of Urinary Filtration, Intermittent, Less than 6 Hours Per Day (ICD-10-PCS; principal; 2018-07-04)
DX: J96.00 Acute respiratory failure, unspecified whether with hypoxia or hypercapnia (principal); N18.6 End stage renal disease; I12.0 Hypertensive chronic kidney disease with stage 5 chronic kidney disease or end stage renal disease; G95.20 Unspecified cord compression; I31.3 Pericardial effusion (noninflammatory); J98.11 Atelectasis; J90 Pleural effusion, not elsewhere classified; E87.70 Fluid overload, unspecified; D64.9 Anemia, unspecified; L89.150 Pressure ulcer of sacral region, unstageable; E78.5 Hyperlipidemia, unspecified; Z53.21 Procedure and treatment not carried out due to patient leaving prior to being seen by health care provider; Z79.82 Long term (current) use of aspirin; Z79.899 Other long term (current) drug therapy; Z86.73 Personal history of transient ischemic attack (TIA), and cerebral infarction without residual deficits; Z99.2 Dependence on renal dialysis
CPT/HCPCS: 36415; 71045; 71250; 80061; 82550; 82553; 83880; 84134; 84439; 84443; 84484; 93005; 93970; 99285; J0885; J1650

== ENCOUNTER 2018-08-10 09:02 | Inpatient (IN) | payer MEDICARE, MEDICAID ==
[~2018-08-10] VITALS: Ht 149.9 cm; Wt 54.6 kg
[2018-08-10] VITALS (15 sets, daily range): BP systolic 150–183; BP diastolic 65–114
[2018-08-10] MEDS ORDERED: ALBUTEROL (0.083%) 2.5MG/3ML NEB HHN STA (09:07)
[2018-08-10] MEDS ORDERED: ALBUTEROL (0.083%) 2.5MG/3ML NEB ONE (09:09)
[2018-08-10 09:30] LABS: BASOPHILS % 1.5 % (0.0-2.0); EOSINOPHILS % 0.8 % (0.0-5.0); HEMATOCRIT. 25.9 % (36.0-48.0); HEMOGLOBIN. 8.4 g/dL (12.0-16.0); LYMPHOCYTES % 10.7 % (20.0-50.0); MEAN CORPUSCULAR HEMOGLOBIN 31.3 pg (28.0-32.0); MEAN PLATELET VOLUME 9.5 fl (7.4-10.4); MONOCYTES % 6.4 % (2.0-8.0); NEUTROPHILS % 80.6 % (40.0-76.0); PLATELET 222 x1000/uL (130-400); RED BLOOD CELL COUNT 2.69 mill/uL (4.2-5.4); RED CELL DISTRIBUTION WIDTH 16.3 % (11.6-14.6)
[2018-08-10 09:36] LABS: CHLORIDE 99 mEq/L (98-107)
[2018-08-10 09:39] LABS: PROTHROMBIN TIME 10.5 sec (9.6-11.0)
[2018-08-10] MEDS ORDERED: FUROSEMIDE 20MG/2ML VIAL IVP ONE (09:45)
[2018-08-10] MEDS ORDERED: ACETAMINOPHEN 325MG TABLET PO PRN (10:15)
[2018-08-10] MEDS ORDERED: MORPHINE SULFATE 4 MG/ML CPJ (NOT FOR IM USE) IV PRN (10:15)
[2018-08-10] MEDS ORDERED: ONDANSETRON HCL 4MG/2ML INJ IV PRN (10:15)
[2018-08-10] MEDS ORDERED: DIPHENHYDRAMINE 50MG/ML VIAL IV PRN (10:15)
[2018-08-10] MEDS ORDERED: GUAIFENESIN 200MG/10ML SUGAR FREE UDC PO PRN (10:15)
[2018-08-10] MEDS ORDERED: HYDROCODONE/ACETAMINOPHEN 5/325MG TABLET PO PRN (10:15)
[2018-08-10] MEDS ORDERED: MAGNESIUM/ALUMINUM HYDROXIDE/SIMETHICONE 30ML UDC PO PRN (10:15)
[2018-08-10] MEDS ORDERED: DOCUSATE SODIUM 100MG CAPSULE PO PRN (10:15)
[2018-08-10] MEDS ORDERED: IPRATROPIUM/ALBUTEROL 0.5-3(2.5)MG/3ML NEB INH PRN (10:15)
[2018-08-10] MEDS ORDERED: NA PHOS,M-B/NA PHOS,DI-BA ENEMA 118ML PR PRN (10:15)
[2018-08-10] MEDS ORDERED: CEFTRIAXONE 1 G PREMIX 50 ML IV ONE (13:30)
[2018-08-10] MEDS: CLONIDINE 0.1MG TABLET PO PRN (13:50)
[2018-08-10] MEDS ORDERED: IPRATROPIUM/ALBUTEROL 0.5-3(2.5)MG/3ML NEB HHN PRN (15:15)
[2018-08-10] MEDS ORDERED: AZITHROMYCIN 500 MG in DEXT 5% WATER 250 ML IV SCH (16:00)
[2018-08-10] MEDS ORDERED: CEFTRIAXONE 1 G PREMIX 50 ML IV NR (16:15)
[2018-08-10 16:53] LABS: BG BASE EXCESS 2.3 mmol/L (-2.0-2.0); BG CARBOXYHEMOGLOBIN 0.8 % (0.5-1.5); BG DEOXYHEMOGLOBIN 15.8 % (0.0-5.0); BG FRACTION INSPIRED OXYGEN 36; BG HCO3 ACT 26.1 mmol/L (22.0-26.0); BG METHEMOGLOBIN 0.3 % (0.0-1.5); BG OXYHEMOGLOBIN 83.1 % (94.0-97.0); BG PCO2 37.3 mmHg (35.0-45.0); BG PH 7.463 (7.350-7.450); BG PO2 49.2 mmHg (75.0-100.0); BG SAMPLE SITE RIGHT BRACHIAL; BG TOTAL HEMOGLOBIN 10.5 g/dL (12.0-18.0); BG VENT MODE NASAL CANNULA
[2018-08-10] MEDS: IPRATROPIUM/ALBUTEROL 0.5-3(2.5)MG/3ML NEB HHN SCH (18:00)
[2018-08-11] VITALS (104 sets, daily range): BP systolic 137–178; BP diastolic 52–124
[2018-08-11] MEDS: LORAZEPAM 2MG/ML CPJ IV PRN ×2 (00:44→05:22)
[2018-08-11] MEDS: ACETYLCYSTEINE 100MG/ML 10% VIAL 4ML INH SCH ×3 (01:51→15:03)
[2018-08-11] MEDS: IPRATROPIUM/ALBUTEROL 0.5-3(2.5)MG/3ML NEB HHN SCH ×4 (01:51→20:12)
[2018-08-11] MEDS ORDERED: EPOETIN ALFA 4000UNITS/ML VIAL SUBCUT NR (02:00)
[2018-08-11 05:41] LABS: BASOPHILS % 1.2 % (0.0-2.0); EOSINOPHILS % 0.7 % (0.0-5.0); HEMOGLOBIN. 8.1 g/dL (12.0-16.0); LYMPHOCYTES % 9.7 % (20.0-50.0); MEAN CORPUSCULAR HEMOGLOBIN 31.5 pg (28.0-32.0); MEAN CORPUSCULAR VOLUME 96.7 fL (81.0-99.0); MEAN PLATELET VOLUME 10.3 fl (7.4-10.4); MONOCYTES % 9.1 % (2.0-8.0); NEUTROPHILS % 79.3 % (40.0-76.0); PLATELET 223 x1000/uL (130-400); RED BLOOD CELL COUNT 2.58 mill/uL (4.2-5.4); RED CELL DISTRIBUTION WIDTH 16.7 % (11.6-14.6)
[2018-08-11 06:47] LABS: CHLORIDE 103 mEq/L (98-107)
[2018-08-11 07:16] LABS: LDL CHOLESTEROL 59 mg/dL (5-100)
[2018-08-11 07:18] LABS: HDL CHOLESTEROL 73 mg/dL (40-59)
[2018-08-11 07:21] LABS: T4 FREE 1.11 ng/dL (0.76-1.46)
[2018-08-11] MEDS: LACTULOSE 20G/30ML UDC PO SCH (08:19)
[2018-08-11] MEDS: DOCUSATE SODIUM 100MG CAPSULE PO SCH ×3 (08:19→17:55)
[2018-08-11] MEDS: ASPIRIN 81MG EC TABLET PO SCH (08:19)
[2018-08-11] MEDS: CARVEDILOL 25MG TABLET PO SCH ×2 (08:20→21:10)
[2018-08-11] MEDS: AMLODIPINE 5MG TABLET PO SCH ×2 (08:20→22:39)
[2018-08-11] MEDS: FOLIC ACID/VITAMIN B COMP W-C TABLET PO SCH (08:20)
[2018-08-11] MEDS: SEVELAMER CARBONATE 800 MG TABLET PO SCH ×3 (08:21→17:55)
[2018-08-11] MEDS: BENAZEPRIL 10MG TABLET PO SCH ×2 (08:21→21:11)
[2018-08-11 10:47] LABS: BG BASE EXCESS 5.1 mmol/L (-2.0-2.0); BG CARBOXYHEMOGLOBIN 0.5 % (0.5-1.5); BG DEOXYHEMOGLOBIN 7.3 % (0.0-5.0); BG HCO3 ACT 30.2 mmol/L (22.0-26.0); BG METHEMOGLOBIN 0.2 % (0.0-1.5); BG OXYGEN SATURATION 92.6 % (92.0-98.5); BG PH 7.417 (7.350-7.450); BG PO2 67.3 mmHg (75.0-100.0); BG SAMPLE SITE RIGHT RADIAL; BG TOTAL HEMOGLOBIN 8.4 g/dL (12.0-18.0); BG VENT MODE MASK - NRB
[2018-08-11] MEDS ORDERED: LIDOCAINE HCL/PF 1% 2ML VIAL ONE (11:07)
[2018-08-11] MEDS ORDERED: CEFTRIAXONE 1 G PREMIX 50 ML IV SCH (14:00)
[2018-08-11] MEDS: IRON SUCROSE COMPLEX 100 MG/5 ML ML IV SCH (18:41)
[2018-08-11] MEDS ORDERED: EPOETIN ALFA 4000UNITS/ML VIAL SUBCUT SCH (21:00)
[2018-08-12] VITALS (95 sets, daily range): BP systolic 133–169; BP diastolic 39–108
[2018-08-12] MEDS: IPRATROPIUM/ALBUTEROL 0.5-3(2.5)MG/3ML NEB HHN SCH ×4 (01:50→20:19)
[2018-08-12] MEDS: ACETYLCYSTEINE 100MG/ML 10% VIAL 4ML INH SCH ×4 (01:50→20:19)
[2018-08-12] MEDS ORDERED: EPOETIN ALFA 4000UNITS/ML VIAL SUBCUT NR (03:00)
[2018-08-12 05:37] LABS: EOSINOPHILS % 0.7 % (0.0-5.0); HEMATOCRIT. 22.1 % (36.0-48.0); HEMOGLOBIN. 7.2 g/dL (12.0-16.0); LYMPHOCYTES % 8.1 % (20.0-50.0); MEAN CORPUSCULAR HEMOGLOBIN 31.6 pg (28.0-32.0); MEAN PLATELET VOLUME 10.4 fl (7.4-10.4); MONOCYTES % 10.5 % (2.0-8.0); NEUTROPHILS % 79.7 % (40.0-76.0); PLATELET 213 x1000/uL (130-400); RED BLOOD CELL COUNT 2.28 mill/uL (4.2-5.4); RED CELL DISTRIBUTION WIDTH 16.6 % (11.6-14.6)
[2018-08-12] MEDS ORDERED: POTASSIUM CHLORIDE 20MEQ/PACKET PO NR (08:00)
[2018-08-12 08:22] LABS: BG CARBOXYHEMOGLOBIN 0.7 % (0.5-1.5); BG FRACTION INSPIRED OXYGEN 40; BG HCO3 ACT 25.6 mmol/L (22.0-26.0); BG METHEMOGLOBIN 0.2 % (0.0-1.5); BG OXYGEN SATURATION 85.9 % (92.0-98.5); BG OXYHEMOGLOBIN 85.1 % (94.0-97.0); BG PCO2 35.2 mmHg (35.0-45.0); BG PH 7.479 (7.350-7.450); BG PO2 51.6 mmHg (75.0-100.0); BG SAMPLE SITE RIGHT RADIAL; BG TOTAL HEMOGLOBIN 7.6 g/dL (12.0-18.0); BG VENT MODE NASAL CANNULA
[2018-08-12] MEDS: SEVELAMER CARBONATE 800 MG TABLET PO SCH ×3 (08:27→17:48)
[2018-08-12] MEDS: FOLIC ACID/VITAMIN B COMP W-C TABLET PO SCH (08:28)
[2018-08-12] MEDS: AMLODIPINE 5MG TABLET PO SCH ×2 (08:28→22:09)
[2018-08-12] MEDS: CARVEDILOL 25MG TABLET PO SCH ×2 (08:28→21:09)
[2018-08-12] MEDS: BENAZEPRIL 10MG TABLET PO SCH ×2 (08:29→21:09)
[2018-08-12] MEDS: ASPIRIN 81MG EC TABLET PO SCH (08:29)
[2018-08-12] MEDS: LACTULOSE 20G/30ML UDC PO SCH (08:36)
[2018-08-12] MEDS: DOCUSATE SODIUM 100MG CAPSULE PO SCH ×3 (08:36→17:12)
[2018-08-12] MEDS: PANTOPRAZOLE SODIUM 40 MG/VIAL IV SCH (09:37)
[2018-08-12 15:25] LABS: HEMATOCRIT 22.2 % (36.0-48.0); HEMOGLOBIN 7.2 g/dL (12.0-16.0)
[2018-08-12] MEDS: CEFTRIAXONE 1 G PREMIX 50 ML IV SCH (15:40)
[2018-08-12] MEDS: IRON SUCROSE COMPLEX 100 MG/5 ML ML IV SCH (17:12)
[2018-08-12] MEDS: LORAZEPAM 2MG/ML CPJ IV PRN (23:00)
[2018-08-13] VITALS (89 sets, daily range): BP systolic 126–169; BP diastolic 28–120
[2018-08-13] MEDS: ACETYLCYSTEINE 100MG/ML 10% VIAL 4ML INH SCH ×3 (02:54→15:29)
[2018-08-13] MEDS: IPRATROPIUM/ALBUTEROL 0.5-3(2.5)MG/3ML NEB HHN SCH ×4 (02:54→20:20)
[2018-08-13 05:45] LABS: HEMATOCRIT. 22.3 % (36.0-48.0); HEMOGLOBIN. 7.3 g/dL (12.0-16.0); MEAN CORPUSCULAR HEMOGLOBIN 31.9 pg (28.0-32.0); MEAN CORPUSCULAR VOLUME 97.7 fL (81.0-99.0); MEAN PLATELET VOLUME 11.2 fl (7.4-10.4); PLATELET 237 x1000/uL (130-400); RED BLOOD CELL COUNT 2.29 mill/uL (4.2-5.4); RED CELL DISTRIBUTION WIDTH 16.9 % (11.6-14.6)
[2018-08-13 07:28] LABS: PLATELET ESTIMATE NORMAL
[2018-08-13 08:30] LABS: BG CARBOXYHEMOGLOBIN 1.9 % (0.5-1.5); BG DEOXYHEMOGLOBIN 11.2 % (0.0-5.0); BG FRACTION INSPIRED OXYGEN 100; BG HCO3 ACT 29.6 mmol/L (22.0-26.0); BG METHEMOGLOBIN 0.2 % (0.0-1.5); BG OXYGEN SATURATION 88.6 % (92.0-98.5); BG OXYHEMOGLOBIN 86.7 % (94.0-97.0); BG PCO2 51.6 mmHg (35.0-45.0); BG PH 7.377 (7.350-7.450); BG PO2 56.9 mmHg (75.0-100.0); BG SAMPLE SITE RIGHT RADIAL; BG TOTAL HEMOGLOBIN 7.1 g/dL (12.0-18.0); BG VENT MODE MASK - NRB
[2018-08-13] MEDS: DOCUSATE SODIUM 100MG CAPSULE PO SCH ×3 (08:42→17:47)
[2018-08-13] MEDS: FOLIC ACID/VITAMIN B COMP W-C TABLET PO SCH (08:42)
[2018-08-13] MEDS: ASPIRIN 81MG EC TABLET PO SCH (08:42)
[2018-08-13] MEDS: LACTULOSE 20G/30ML UDC PO SCH (08:42)
[2018-08-13] MEDS: PANTOPRAZOLE SODIUM 40 MG/VIAL IV SCH (08:42)
[2018-08-13] MEDS: SEVELAMER CARBONATE 800 MG TABLET PO SCH ×3 (08:42→17:47)
[2018-08-13] MEDS: BENAZEPRIL 10MG TABLET PO SCH ×2 (09:00→21:41)
[2018-08-13] MEDS: CARVEDILOL 25MG TABLET PO SCH ×2 (09:00→21:42)
[2018-08-13] MEDS: AMLODIPINE 5MG TABLET PO SCH ×2 (09:00→21:41)
[2018-08-13] MEDS: AZITHROMYCIN 500MG in DEXTROSE 5% WATER 250ML IV SCH (15:17)
[2018-08-13] MEDS: CEFTRIAXONE 1 G PREMIX 50 ML IV SCH (15:29)
[2018-08-13 15:39] LABS: BG BASE EXCESS 2.1 mmol/L (-2.0-2.0); BG BILEVEL POS AIRWAY PRESSURE 15/5; BG CARBOXYHEMOGLOBIN 0.7 % (0.5-1.5); BG DEOXYHEMOGLOBIN 0.2 % (0.0-5.0); BG FRACTION INSPIRED OXYGEN 100; BG HCO3 ACT 27.5 mmol/L (22.0-26.0); BG METHEMOGLOBIN 0.1 % (0.0-1.5); BG OXYGEN SATURATION 99.8 % (92.0-98.5); BG PCO2 47.2 mmHg (35.0-45.0); BG PH 7.384 (7.350-7.450); BG PO2 214.6 mmHg (75.0-100.0); BG SAMPLE SITE RIGHT RADIAL; BG TOTAL HEMOGLOBIN 8.9 g/dL (12.0-18.0); BG VENT MODE MASK - BIPAP
[2018-08-13] MEDS: IRON SUCROSE COMPLEX 100 MG/5 ML ML IV SCH (17:48)
[2018-08-13] MEDS ORDERED: EPOETIN ALFA 4000UNITS/ML VIAL SUBCUT SCH (21:00)
[2018-08-14] VITALS (59 sets, daily range): BP systolic 119–162; BP diastolic 43–87
[2018-08-14] MEDS: LACTULOSE 20G/30ML UDC PO SCH (09:00)
[2018-08-14] MEDS: AMLODIPINE 5MG TABLET PO SCH ×2 (09:00→22:07)
[2018-08-14] MEDS: CARVEDILOL 25MG TABLET PO SCH ×2 (09:00→21:10)
[2018-08-14] MEDS: BENAZEPRIL 10MG TABLET PO SCH ×2 (09:00→21:10)
[2018-08-14] MEDS: IPRATROPIUM/ALBUTEROL 0.5-3(2.5)MG/3ML NEB HHN SCH ×3 (09:02→19:48)
[2018-08-14] MEDS: ACETYLCYSTEINE 100MG/ML 10% VIAL 4ML INH SCH (09:02)
[2018-08-14 09:25] LABS: HEMATOCRIT. 22.4 % (36.0-48.0); HEMOGLOBIN. 7.3 g/dL (12.0-16.0); MEAN CORPUSCULAR HEMOGLOBIN 31.7 pg (28.0-32.0); MEAN CORPUSCULAR VOLUME 96.4 fL (81.0-99.0); MEAN PLATELET VOLUME 10.2 fl (7.4-10.4); PLATELET 196 x1000/uL (130-400); RED BLOOD CELL COUNT 2.32 mill/uL (4.2-5.4); RED CELL DISTRIBUTION WIDTH 15.8 % (11.6-14.6)
[2018-08-14] MEDS: SEVELAMER CARBONATE 800 MG TABLET PO SCH ×3 (09:32→18:07)
[2018-08-14] MEDS: FOLIC ACID/VITAMIN B COMP W-C TABLET PO SCH (09:32)
[2018-08-14] MEDS: PANTOPRAZOLE SODIUM 40 MG/VIAL IV SCH (09:32)
[2018-08-14] MEDS: ASPIRIN 81MG EC TABLET PO SCH (09:32)
[2018-08-14] MEDS: DOCUSATE SODIUM 100MG CAPSULE PO SCH ×3 (09:32→18:07)
[2018-08-14] MEDS: AZITHROMYCIN 500MG in DEXTROSE 5% WATER 250ML IV SCH (09:33)
[2018-08-14 12:41] LABS: BG BASE EXCESS 2.9 mmol/L (-2.0-2.0); BG CARBOXYHEMOGLOBIN 0.3 % (0.5-1.5); BG DEOXYHEMOGLOBIN 11.3 % (0.0-5.0); BG HCO3 ACT 26.6 mmol/L (22.0-26.0); BG METHEMOGLOBIN 1.4 % (0.0-1.5); BG OXYGEN SATURATION 88.5 % (92.0-98.5); BG PCO2 36.9 mmHg (35.0-45.0); BG PH 7.475 (7.350-7.450); BG SAMPLE SITE RIGHT RADIAL; BG VENT MODE NASAL CANNULA
[2018-08-14 13:49] LABS: PLATELET ESTIMATE NORMAL
[2018-08-14] MEDS: CEFTRIAXONE 1 G PREMIX 50 ML IV SCH (15:56)
[2018-08-14] MEDS ORDERED: LACTULOSE 20G/30ML UDC PO NR ×2 (18:00→22:00)
[2018-08-14] MEDS: IRON SUCROSE COMPLEX 100 MG/5 ML ML IV SCH (18:08)
[2018-08-14] MEDS ORDERED: EPOETIN ALFA 4000UNITS/ML VIAL SUBCUT SCH (21:00)
[2018-08-14] MEDS: EPOETIN ALFA 4000UNITS/ML VIAL SUBCUT SCH (21:09)
[2018-08-15] VITALS (35 sets, daily range): BP systolic 118–161; BP diastolic 46–108
[2018-08-15] MEDS: ACETYLCYSTEINE 100MG/ML 10% VIAL 4ML INH SCH ×4 (00:30→14:00)
[2018-08-15] MEDS: IPRATROPIUM/ALBUTEROL 0.5-3(2.5)MG/3ML NEB HHN SCH ×4 (00:30→21:02)
[2018-08-15] MEDS: LORAZEPAM 2MG/ML CPJ IV PRN (02:00)
[2018-08-15 06:02] LABS: BASOPHILS % 0.4 % (0.0-2.0); EOSINOPHILS % 2.7 % (0.0-5.0); HEMATOCRIT. 24.6 % (36.0-48.0); HEMOGLOBIN. 7.7 g/dL (12.0-16.0); LYMPHOCYTES % 7.2 % (20.0-50.0); MEAN CORPUSCULAR HEMOGLOBIN 30.5 pg (28.0-32.0); MEAN CORPUSCULAR VOLUME 97.4 fL (81.0-99.0); MEAN PLATELET VOLUME 10.5 fl (7.4-10.4); MONOCYTES % 8.4 % (2.0-8.0); NEUTROPHILS % 81.3 % (40.0-76.0); PLATELET 238 x1000/uL (130-400); RED BLOOD CELL COUNT 2.53 mill/uL (4.2-5.4)
[2018-08-15] MEDS: CARVEDILOL 25MG TABLET PO SCH ×2 (09:00→21:44)
[2018-08-15] MEDS: AMLODIPINE 5MG TABLET PO SCH ×2 (09:00→21:44)
[2018-08-15] MEDS: BENAZEPRIL 10MG TABLET PO SCH ×2 (09:00→21:43)
[2018-08-15] MEDS: DOCUSATE SODIUM 100MG CAPSULE PO SCH ×3 (09:00→17:00)
[2018-08-15] MEDS ORDERED: FAMOTIDINE 20MG TABLET PO SCH (09:00)
[2018-08-15 09:18] LABS: BG BASE EXCESS 4.6 mmol/L (-2.0-2.0); BG BILEVEL POS AIRWAY PRESSURE ST=15/5; BG CARBOXYHEMOGLOBIN 0.4 % (0.5-1.5); BG DEOXYHEMOGLOBIN 2.1 % (0.0-5.0); BG FRACTION INSPIRED OXYGEN 60; BG HCO3 ACT 30.2 mmol/L (22.0-26.0); BG OXYGEN SATURATION 97.9 % (92.0-98.5); BG OXYHEMOGLOBIN 97.5 % (94.0-97.0); BG PCO2 50.6 mmHg (35.0-45.0); BG PH 7.393 (7.350-7.450); BG PO2 103.3 mmHg (75.0-100.0); BG PRESSURE SUPPORT 10; BG SAMPLE SITE RIGHT RADIAL; BG VENT MODE MASK - BIPAP; BG VENT RATE 14 set
[2018-08-15] MEDS: FOLIC ACID/VITAMIN B COMP W-C TABLET PO SCH (09:59)
[2018-08-15] MEDS: SEVELAMER CARBONATE 800 MG TABLET PO SCH ×2 (09:59→13:20)
[2018-08-15] MEDS: AZITHROMYCIN 500MG in DEXTROSE 5% WATER 250ML IV SCH (10:01)
[2018-08-15] MEDS: CEFTRIAXONE 1 G PREMIX 50 ML IV SCH (15:00)
[2018-08-15] MEDS ORDERED: FAMOTIDINE 20MG/2ML VIAL IV SCH (18:56)
[2018-08-15] MEDS: LACTULOSE 20G/30ML UDC PO SCH (20:33)
[2018-08-15] MEDS: BISACODYL 10MG SUPP PR SCH (20:34)
[2018-08-15] MEDS: EPOETIN ALFA 4000UNITS/ML VIAL SUBCUT SCH (21:44)
[2018-08-16] VITALS (76 sets, daily range): BP systolic 53–224; BP diastolic 24–149
[2018-08-16] MEDS: LACTULOSE 20G/30ML UDC PO SCH
[2018-08-16] MEDS: BISACODYL 10MG SUPP PR SCH
[2018-08-16] MEDS: CLONIDINE 0.1MG TABLET PO PRN (00:48)
[2018-08-16] MEDS ORDERED: ZOLPIDEM TARTRATE 5MG TABLET PO PRN (02:15)
[2018-08-16] MEDS: IPRATROPIUM/ALBUTEROL 0.5-3(2.5)MG/3ML NEB HHN SCH ×4 (02:36→20:59)
[2018-08-16 06:12] LABS: HEMATOCRIT. 25.3 % (36.0-48.0); HEMOGLOBIN. 8.1 g/dL (12.0-16.0); MEAN CORPUSCULAR HEMOGLOBIN 31.3 pg (28.0-32.0); MEAN CORPUSCULAR VOLUME 98.1 fL (81.0-99.0); MEAN PLATELET VOLUME 10.4 fl (7.4-10.4); PLATELET 243 x1000/uL (130-400); RED BLOOD CELL COUNT 2.58 mill/uL (4.2-5.4); RED CELL DISTRIBUTION WIDTH 15.9 % (11.6-14.6)
[2018-08-16 07:50] LABS: PLATELET ESTIMATE NORMAL
[2018-08-16 08:38] LABS: BG BASE EXCESS 4.8 mmol/L (-2.0-2.0); BG CARBOXYHEMOGLOBIN 0.4 % (0.5-1.5); BG DEOXYHEMOGLOBIN 15.1 % (0.0-5.0); BG FRACTION INSPIRED OXYGEN 100; BG HCO3 ACT 31.7 mmol/L (22.0-26.0); BG METHEMOGLOBIN 0.5 % (0.0-1.5); BG OXYGEN SATURATION 84.8 % (92.0-98.5); BG PCO2 61.4 mmHg (35.0-45.0); BG PH 7.331 (7.350-7.450); BG SAMPLE SITE RIGHT RADIAL; BG TOTAL HEMOGLOBIN 8.8 g/dL (12.0-18.0); BG VENT MODE VAPOTHERM
[2018-08-16] MEDS: CARVEDILOL 25MG TABLET PO SCH ×2 (09:00→20:50)
[2018-08-16] MEDS ORDERED: ATROPINE SULFATE 1MG/10ML SYR ONE (09:00)
[2018-08-16] MEDS ORDERED: EPINEPHRINE 0.1MG/ML (1:10,000) 10ML SYR ONE (09:00)
[2018-08-16] MEDS: BENAZEPRIL 10MG TABLET PO SCH ×2 (09:00→20:51)
[2018-08-16] MEDS: AMLODIPINE 5MG TABLET PO SCH ×2 (09:00→20:51)
[2018-08-16] MEDS: DOCUSATE SODIUM SUGAR FREE 100MG/10ML UDC PO SCH ×3 (09:00→16:19)
[2018-08-16] MEDS ORDERED: CALCIUM CHLORIDE 1GM/10ML SYR IV ONE (09:00)
[2018-08-16] MEDS ORDERED: SUCCINYLCHOLINE CHLORIDE 200MG/10ML IV ONE (09:30)
[2018-08-16] MEDS ORDERED: ETOMIDATE 2MG/ML 10ML VIAL IV ONE (09:30)
[2018-08-16 09:44] LABS: BG BASE EXCESS -0.3 mmol/L (-2.0-2.0); BG CARBOXYHEMOGLOBIN 0.4 % (0.5-1.5); BG DEOXYHEMOGLOBIN 0.3 % (0.0-5.0); BG FRACTION INSPIRED OXYGEN 100; BG HCO3 ACT 25.9 mmol/L (22.0-26.0); BG METHEMOGLOBIN 0.4 % (0.0-1.5); BG OXYGEN SATURATION 99.7 % (92.0-98.5); BG OXYHEMOGLOBIN 98.9 % (94.0-97.0); BG PCO2 50.8 mmHg (35.0-45.0); BG PH 7.325 (7.350-7.450); BG PO2 307.8 mmHg (75.0-100.0); BG SAMPLE SITE RIGHT RADIAL; BG TIDAL VOLUME(mL) 450 mL; BG TOTAL HEMOGLOBIN 7.9 g/dL (12.0-18.0); BG VENT MODE VENT - A/C; BG VENT RATE 14 set
[2018-08-16] MEDS ORDERED: SODIUM CHLORIDE 0.9% 500 ML IV ONE (09:45)
[2018-08-16] MEDS: FAMOTIDINE 20MG/2ML VIAL IV SCH (11:06)
[2018-08-16] MEDS: FOLIC ACID/VITAMIN B COMP W-C TABLET PO SCH (11:06)
[2018-08-16] MEDS: AZITHROMYCIN 500MG in DEXTROSE 5% WATER 250ML IV SCH (11:07)
[2018-08-16] MEDS: NOREPINEPHRINE 8 MG in DEXT 5% WATER 242 ML IV PRN (11:09)
[2018-08-16] MEDS: PROPOFOL 10MG/ML 100ML 100 ML IV PRN (11:12)
[2018-08-16] MEDS: PHENYLEPHRINE 20 MG in DEXT 5% WATER 248 ML IV PRN ×2 (13:13→13:26)
[2018-08-16] MEDS: CEFTRIAXONE 1 G PREMIX 50 ML IV SCH (16:18)
[2018-08-16] MEDS: IRON SUCROSE COMPLEX 100 MG/5 ML ML IV SCH (16:18)
[2018-08-16] MEDS: EPOETIN ALFA 4000UNITS/ML VIAL SUBCUT SCH (21:21)
[2018-08-17] VITALS (77 sets, daily range): BP systolic 96–172; BP diastolic 31–110
[2018-08-17] MEDS: IPRATROPIUM/ALBUTEROL 0.5-3(2.5)MG/3ML NEB HHN SCH ×3 (02:46→20:50)
[2018-08-17] MEDS: PROPOFOL 10MG/ML 100ML 100 ML IV PRN ×2 (04:38→20:32)
[2018-08-17 06:39] LABS: HEMATOCRIT. 23.7 % (36.0-48.0); HEMOGLOBIN. 7.5 g/dL (12.0-16.0); MEAN CORPUSCULAR HEMOGLOBIN 30.8 pg (28.0-32.0); MEAN PLATELET VOLUME 10.4 fl (7.4-10.4); PLATELET 238 x1000/uL (130-400); RED BLOOD CELL COUNT 2.45 mill/uL (4.2-5.4); RED CELL DISTRIBUTION WIDTH 15.9 % (11.6-14.6)
[2018-08-17 07:53] LABS: BG BASE EXCESS 3.6 mmol/L (-2.0-2.0); BG CARBOXYHEMOGLOBIN 0.6 % (0.5-1.5); BG FRACTION INSPIRED OXYGEN 50; BG HCO3 ACT 27.1 mmol/L (22.0-26.0); BG METHEMOGLOBIN 0.6 % (0.0-1.5); BG OXYHEMOGLOBIN 96.8 % (94.0-97.0); BG PCO2 36.5 mmHg (35.0-45.0); BG PH 7.489 (7.350-7.450); BG PO2 99.6 mmHg (75.0-100.0); BG SAMPLE SITE RIGHT RADIAL; BG TIDAL VOLUME(mL) 450 mL; BG VENT MODE VENT - A/C; BG VENT RATE 14 set
[2018-08-17 08:06] LABS: PLATELET ESTIMATE NORMAL
[2018-08-17] MEDS: BENAZEPRIL 10MG TABLET PO SCH (09:00)
[2018-08-17] MEDS: CARVEDILOL 25MG TABLET PO SCH (09:00)
[2018-08-17] MEDS: DOCUSATE SODIUM SUGAR FREE 100MG/10ML UDC PO SCH ×3 (09:00→16:04)
[2018-08-17] MEDS: AMLODIPINE 5MG TABLET PO SCH (09:00)
[2018-08-17] MEDS: FOLIC ACID/VITAMIN B COMP W-C TABLET PO SCH (09:01)
[2018-08-17] MEDS: AZITHROMYCIN 500MG in DEXTROSE 5% WATER 250ML IV SCH (09:01)
[2018-08-17] MEDS: FAMOTIDINE 20MG/2ML VIAL IV SCH (09:01)
[2018-08-17] MEDS: IRON SUCROSE COMPLEX 100 MG/5 ML ML IV SCH (10:04)
[2018-08-17] MEDS: MEROPENEM 500 MG in SODIUM CHLORIDE 0.9% 50 ML IV SCH (14:55)
[2018-08-17] MEDS ORDERED: VANCOMYCIN 1 G PREMIX 200 ML IV SCH (16:00)
[2018-08-17] MEDS: SEVELAMER CARBONATE 800 MG TABLET PO SCH (17:16)
[2018-08-18] VITALS (58 sets, daily range): BP systolic 96–161; BP diastolic 30–81
[2018-08-18] MEDS: BENAZEPRIL 10MG TABLET PO SCH ×3 (00:40→21:00)
[2018-08-18] MEDS: IPRATROPIUM/ALBUTEROL 0.5-3(2.5)MG/3ML NEB HHN SCH ×4 (01:47→20:14)
[2018-08-18 06:23] LABS: MEAN CORPUSCULAR HEMOGLOBIN 28.7 pg (28.0-32.0); MEAN PLATELET VOLUME 9.2 fl (7.4-10.4); PLATELET 228 x1000/uL (130-400); RED BLOOD CELL COUNT 3.22 mill/uL (4.2-5.4); RED CELL DISTRIBUTION WIDTH 26.4 % (11.6-14.6)
[2018-08-18 06:40] LABS: HEMOGLOBIN. 9.2 g/dL (12.0-16.0)
[2018-08-18] MEDS: DOCUSATE SODIUM SUGAR FREE 100MG/10ML UDC PO SCH ×3 (08:45→16:46)
[2018-08-18] MEDS: FAMOTIDINE 20MG/2ML VIAL IV SCH (08:45)
[2018-08-18] MEDS: IRON SUCROSE COMPLEX 100 MG/5 ML ML IV SCH (08:45)
[2018-08-18] MEDS: SEVELAMER CARBONATE 800 MG TABLET PO SCH ×3 (08:46→18:29)
[2018-08-18] MEDS: FOLIC ACID/VITAMIN B COMP W-C TABLET PO SCH (08:46)
[2018-08-18 09:08] LABS: CLARITY URINE CLEAR (CLEAR); COLOR URINE YELLOW (YELLOW); KETONES URINE NEGATIVE (NEGATIVE); LEUKOCYTE ESTERASE URINE 2+ (NEGATIVE); NITRITE URINE NEGATIVE (NEGATIVE); OCCULT BLOOD URINE 2+ (NEGATIVE); PH URINE 6.5 (4.5-8.0); PROTEIN URINE NEGATIVE (NEGATIVE); SPECIFIC GRAVITY URINE 1.005 (1.005-1.030); UROBILINOGEN URINE 0.2 E.U./dL (0.2-1.0)
[2018-08-18 09:24] LABS: BG BASE EXCESS 4.4 mmol/L (-2.0-2.0); BG CARBOXYHEMOGLOBIN 0.6 % (0.5-1.5); BG DEOXYHEMOGLOBIN 1.7 % (0.0-5.0); BG FRACTION INSPIRED OXYGEN 50; BG HCO3 ACT 27.7 mmol/L (22.0-26.0); BG METHEMOGLOBIN 0.3 % (0.0-1.5); BG OXYGEN SATURATION 98.3 % (92.0-98.5); BG OXYHEMOGLOBIN 97.4 % (94.0-97.0); BG PCO2 36.2 mmHg (35.0-45.0); BG PH 7.502 (7.350-7.450); BG PO2 105.4 mmHg (75.0-100.0); BG SAMPLE SITE RIGHT RADIAL; BG TIDAL VOLUME(mL) 450 mL; BG TOTAL HEMOGLOBIN 9.7 g/dL (12.0-18.0); BG VENT MODE VENT - A/C; BG VENT RATE 14 set
[2018-08-18] MEDS: PROPOFOL 10MG/ML 100ML 100 ML IV PRN ×2 (10:02→18:23)
[2018-08-18 10:29] LABS: PLATELET ESTIMATE NORMAL
[2018-08-18] MEDS: MEROPENEM 500 MG in SODIUM CHLORIDE 0.9% 50 ML IV SCH (14:01)
[2018-08-19] VITALS (60 sets, daily range): BP systolic 80–168; BP diastolic 31–79
[2018-08-19] MEDS: IPRATROPIUM/ALBUTEROL 0.5-3(2.5)MG/3ML NEB HHN SCH ×5 (00:18→23:55)
[2018-08-19 06:27] LABS: BASOPHILS % 0.7 % (0.0-2.0); EOSINOPHILS % 3.8 % (0.0-5.0); HEMATOCRIT. 26.9 % (36.0-48.0); HEMOGLOBIN. 8.7 g/dL (12.0-16.0); MEAN CORPUSCULAR HEMOGLOBIN 29.2 pg (28.0-32.0); MEAN CORPUSCULAR VOLUME 89.9 fL (81.0-99.0); MEAN PLATELET VOLUME 9.7 fl (7.4-10.4); MONOCYTES % 7.3 % (2.0-8.0); NEUTROPHILS % 80.2 % (40.0-76.0); PLATELET 231 x1000/uL (130-400); RED BLOOD CELL COUNT 2.99 mill/uL (4.2-5.4); RED CELL DISTRIBUTION WIDTH 25.6 % (11.6-14.6)
[2018-08-19] MEDS: DOCUSATE SODIUM SUGAR FREE 100MG/10ML UDC PO SCH ×3 (08:40→16:32)
[2018-08-19] MEDS: FAMOTIDINE 20MG/2ML VIAL IV SCH (08:40)
[2018-08-19] MEDS: SEVELAMER CARBONATE 800 MG TABLET PO SCH ×2 (08:40→14:01)
[2018-08-19] MEDS: FOLIC ACID/VITAMIN B COMP W-C TABLET PO SCH (08:40)
[2018-08-19] MEDS: IRON SUCROSE COMPLEX 100 MG/5 ML ML IV SCH (08:40)
[2018-08-19] MEDS: PROPOFOL 10MG/ML 100ML 100 ML IV PRN ×2 (08:41→16:33)
[2018-08-19] MEDS ORDERED: EPOETIN ALFA 4000UNITS/ML VIAL SUBCUT SCH (09:00)
[2018-08-19] MEDS: BENAZEPRIL 10MG TABLET PO SCH ×2 (09:22→21:00)
[2018-08-19 09:24] LABS: BG CARBOXYHEMOGLOBIN 1.7 % (0.5-1.5); BG DEOXYHEMOGLOBIN 1.3 % (0.0-5.0); BG FRACTION INSPIRED OXYGEN 50; BG HCO3 ACT 28.9 mmol/L (22.0-26.0); BG METHEMOGLOBIN 0.3 % (0.0-1.5); BG OXYGEN SATURATION 98.7 % (92.0-98.5); BG OXYHEMOGLOBIN 96.7 % (94.0-97.0); BG PCO2 39.3 mmHg (35.0-45.0); BG PH 7.484 (7.350-7.450); BG PO2 116.1 mmHg (75.0-100.0); BG SAMPLE SITE RIGHT RADIAL; BG TIDAL VOLUME(mL) 450 mL; BG TOTAL HEMOGLOBIN 7.9 g/dL (12.0-18.0); BG VENT MODE VENT - A/C; BG VENT RATE 14 set
[2018-08-19] MEDS: MEROPENEM 500 MG in SODIUM CHLORIDE 0.9% 50 ML IV SCH (14:01)
[2018-08-19] MEDS: NOREPINEPHRINE 8 MG in DEXT 5% WATER 242 ML IV PRN (18:17)
[2018-08-19] MEDS ORDERED: EPOETIN ALFA 4000UNITS/ML VIAL SUBCUT ONE (21:00)
[2018-08-20] VITALS (64 sets, daily range): BP systolic 70–171; BP diastolic 40–93
[2018-08-20] MEDS: PROPOFOL 10MG/ML 100ML 100 ML IV PRN (01:36)
[2018-08-20 05:30] LABS: BASOPHILS % 0.6 % (0.0-2.0); EOSINOPHILS % 3.3 % (0.0-5.0); HEMATOCRIT. 30.7 % (36.0-48.0); HEMOGLOBIN. 9.7 g/dL (12.0-16.0); LYMPHOCYTES % 7.1 % (20.0-50.0); MEAN CORPUSCULAR HEMOGLOBIN 28.8 pg (28.0-32.0); MEAN CORPUSCULAR VOLUME 91.6 fL (81.0-99.0); MEAN PLATELET VOLUME 9.9 fl (7.4-10.4); MONOCYTES % 11.1 % (2.0-8.0); NEUTROPHILS % 77.9 % (40.0-76.0); PLATELET 233 x1000/uL (130-400); RED BLOOD CELL COUNT 3.35 mill/uL (4.2-5.4); RED CELL DISTRIBUTION WIDTH 25.1 % (11.6-14.6)
[2018-08-20 07:40] LABS: BG CARBOXYHEMOGLOBIN 0.9 % (0.5-1.5); BG DEOXYHEMOGLOBIN 3.1 % (0.0-5.0); BG HCO3 ACT 25.2 mmol/L (22.0-26.0); BG METHEMOGLOBIN 0.2 % (0.0-1.5); BG OXYGEN SATURATION 96.9 % (92.0-98.5); BG OXYHEMOGLOBIN 95.8 % (94.0-97.0); BG PCO2 34.5 mmHg (35.0-45.0); BG PH 7.482 (7.350-7.450); BG PO2 83.1 mmHg (75.0-100.0); BG SAMPLE SITE RIGHT BRACHIAL; BG TIDAL VOLUME(mL) 450 mL; BG TOTAL HEMOGLOBIN 10.9 g/dL (12.0-18.0); BG VENT MODE VENT - A/C; BG VENT RATE 14 set
[2018-08-20] MEDS: BENAZEPRIL 10MG TABLET PO SCH ×2 (09:00→09:03)
[2018-08-20] MEDS: FOLIC ACID/VITAMIN B COMP W-C TABLET PO SCH (09:02)
[2018-08-20] MEDS: SEVELAMER CARBONATE 800 MG TABLET PO SCH ×4 (09:02→17:26)
[2018-08-20] MEDS: FAMOTIDINE 20MG/2ML VIAL IV SCH (09:02)
[2018-08-20] MEDS: DOCUSATE SODIUM SUGAR FREE 100MG/10ML UDC PO SCH ×3 (09:02→17:00)
[2018-08-20] MEDS: IPRATROPIUM/ALBUTEROL 0.5-3(2.5)MG/3ML NEB HHN SCH ×4 (09:03→20:39)
[2018-08-20] MEDS ORDERED: PROPOFOL 10MG/ML 100ML 100 ML IV PRN (10:15)
[2018-08-20] MEDS ORDERED: SODIUM CHLORIDE 0.9% 250 ML IV SCH (11:30)
[2018-08-20] MEDS ORDERED: PHENYLEPHRINE 40 MG in DEXT 5% WATER 246 ML IV PRN (12:00)
[2018-08-20] MEDS: MEROPENEM 500 MG in SODIUM CHLORIDE 0.9% 50 ML IV SCH (14:22)
[2018-08-20] MEDS: ACETYLCYSTEINE 100MG/ML 10% VIAL 4ML INH SCH (15:53)
[2018-08-20] MEDS ORDERED: CEFTAZIDIME PENTAHYDRATE 1 G in DEXTROSE 5% WATER 50 ML IV SCH (16:00)
[2018-08-21] VITALS (28 sets, daily range): BP systolic 87–198; BP diastolic 52–113
[2018-08-21] MEDS: IPRATROPIUM/ALBUTEROL 0.5-3(2.5)MG/3ML NEB HHN SCH ×3 (00:45→08:07)
[2018-08-21] MEDS: ACETYLCYSTEINE 100MG/ML 10% VIAL 4ML INH SCH ×2 (00:51→08:07)
[2018-08-21 05:53] LABS: HEMATOCRIT. 31.8 % (36.0-48.0); MEAN CORPUSCULAR HEMOGLOBIN 28.9 pg (28.0-32.0); MEAN CORPUSCULAR VOLUME 92.2 fL (81.0-99.0); MEAN PLATELET VOLUME 9.8 fl (7.4-10.4); PLATELET 211 x1000/uL (130-400); RED BLOOD CELL COUNT 3.45 mill/uL (4.2-5.4)
[2018-08-21] MEDS: FAMOTIDINE 20MG/2ML VIAL IV SCH (08:36)
[2018-08-21] MEDS: FOLIC ACID/VITAMIN B COMP W-C TABLET PO SCH (08:36)
[2018-08-21] MEDS: SEVELAMER CARBONATE 800 MG TABLET PO SCH (08:36)
[2018-08-21] MEDS: BENAZEPRIL 10MG TABLET PO SCH (08:36)
[2018-08-21] MEDS: DOCUSATE SODIUM SUGAR FREE 100MG/10ML UDC PO SCH (08:37)
[2018-08-21] MEDS ORDERED: ATROPINE SULFATE 1% OPHTH 2ML SL PRN (11:00)
[2018-08-21] MEDS ORDERED: MORPHINE SULFATE 100 MG in DEXT 5% WATER 90 ML IV PRN (11:00)
[2018-08-21 12:15] LABS: PLATELET ESTIMATE NORMAL
[2018-08-21] MEDS ORDERED: METRONIDAZOLE 500MG TABLET PO SCH (14:00)
[2018-08-21] MEDS ORDERED: PROPOFOL 10MG/ML 100ML 100 ML IV PRN (15:45)
[2018-08-21] MEDS ORDERED: MORPHINE SULFATE 250 MG in DEXT 5% WATER 240 ML IV PRN (19:15)
[2018-08-21] MEDS ORDERED: EPOETIN ALFA 4000UNITS/ML VIAL SUBCUT SCH (21:00)
[2018-08-22] VITALS: BP 81/42
[2018-08-22 04:00] VITALS: BP 78/34
[2018-08-22 08:00] VITALS: BP 68/36
[2018-08-22 12:00] VITALS: BP 69/31
[2018-08-22 16:00] VITALS: BP 55/28
== END 2018-08-22 16:49 | disposition expired | DRG 870 ==
LOC: ER 09:11 → CVICU 09:16 → EDBEDREQ 10:09 → EDBEDREQSVC 14:44 → ENRESERV 19:40 → 6EST 08-21 23:00
PROVIDERS: ADMIT Internal Medicine; ATTEND Internal Medicine
PROC: 5A1955Z Respiratory Ventilation, Greater than 96 Consecutive Hours (ICD-10-PCS; principal; 2018-08-10)
PROC: 0BH17EZ Insertion of Endotracheal Airway into Trachea, Via Natural or Artificial Opening (ICD-10-PCS; 2018-08-10)
PROC: 5A12012 Performance of Cardiac Output, Single, Manual (ICD-10-PCS; 2018-08-10)
PROC: 02HV33Z Insertion of Infusion Device into Superior Vena Cava, Percutaneous Approach (ICD-10-PCS; 2018-08-10)
PROC: B548ZZA Ultrasonography of Superior Vena Cava, Guidance (ICD-10-PCS; 2018-08-10)
PROC: 5A1D70Z Performance of Urinary Filtration, Intermittent, Less than 6 Hours Per Day (ICD-10-PCS; 2018-08-10)
PROC: 5A1D70Z Performance of Urinary Filtration, Intermittent, Less than 6 Hours Per Day (ICD-10-PCS; 2018-08-10)
PROC: 5A1D70Z Performance of Urinary Filtration, Intermittent, Less than 6 Hours Per Day (ICD-10-PCS; 2018-08-10)
PROC: 5A1D70Z Performance of Urinary Filtration, Intermittent, Less than 6 Hours Per Day (ICD-10-PCS; 2018-08-10)
PROC: 5A1D70Z Performance of Urinary Filtration, Intermittent, Less than 6 Hours Per Day (ICD-10-PCS; 2018-08-10)
PROC: 5A1D70Z Performance of Urinary Filtration, Intermittent, Less than 6 Hours Per Day (ICD-10-PCS; 2018-08-10)
PROC: 5A1D70Z Performance of Urinary Filtration, Intermittent, Less than 6 Hours Per Day (ICD-10-PCS; 2018-08-10)
PROC: 5A1D70Z Performance of Urinary Filtration, Intermittent, Less than 6 Hours Per Day (ICD-10-PCS; 2018-08-10)
PROC: 5A09357 Assistance with Respiratory Ventilation, Less than 24 Consecutive Hours, Continuous Positive Airway Pressure (ICD-10-PCS; 2018-08-13)
PROC: 5A09357 Assistance with Respiratory Ventilation, Less than 24 Consecutive Hours, Continuous Positive Airway Pressure (ICD-10-PCS; 2018-08-14)
PROC: 5A09357 Assistance with Respiratory Ventilation, Less than 24 Consecutive Hours, Continuous Positive Airway Pressure (ICD-10-PCS; 2018-08-15)
DX: A41.9 Sepsis, unspecified organism (principal); J18.9 Pneumonia, unspecified organism; N18.6 End stage renal disease; J96.01 Acute respiratory failure with hypoxia; E43 Unspecified severe protein-calorie malnutrition; J44.0 Chronic obstructive pulmonary disease with (acute) lower respiratory infection; K92.2 Gastrointestinal hemorrhage, unspecified; I13.2 Hypertensive heart and chronic kidney disease with heart failure and with stage 5 chronic kidney disease, or end stage renal disease; I31.3 Pericardial effusion (noninflammatory); G95.20 Unspecified cord compression; I46.9 Cardiac arrest, cause unspecified; I50.9 Heart failure, unspecified; I27.20 Pulmonary hypertension, unspecified; D63.8 Anemia in other chronic diseases classified elsewhere; E11.22 Type 2 diabetes mellitus with diabetic chronic kidney disease; I25.10 Atherosclerotic heart disease of native coronary artery without angina pectoris; L89.150 Pressure ulcer of sacral region, unstageable; B95.2 Enterococcus as the cause of diseases classified elsewhere; Z16.21 Resistance to vancomycin; Z66 Do not resuscitate; Z51.5 Encounter for palliative care; Z79.82 Long term (current) use of aspirin; Z99.2 Dependence on renal dialysis; Z79.899 Other long term (current) drug therapy; Z68.24 Body mass index [BMI] 24.0-24.9, adult; Z78.1 Physical restraint status
CPT/HCPCS: 31500; 36415; 36569; 36600; 71045; 71250; 76604; 76937; 78580; 80048; 80061; 82040; 82270; 82375; 82805; 82962; 83605; 83880; 84439; 84443; 84478; 84484; 85014; 85018; 86850; 86900; 86920; 87070; 92610; 93005; 93306; 93308; 93970; 94002; 94003; 94640; 94660; 94667; 96365; 96368; 96375; 97162; 99291; C1725; C1893; C9113; J0330; J0456; J0461; J0696; J0713; J0885; J1200; J1940; J2060; J2185; J2274; J2370; J2704; J3370; J3490; J7042; J7050; J7060; J7070; J7608; J7611; J7620; P9016; A4315